=== PATIENT | male | born 1955 | race Caucasian/White ===

== ENCOUNTER → 2018-02-20 | Outpatient (CLI) | payer BC ==
[2018-02-20 12:52] LABS: LDL Cholesterol,Calculated 61.6 mg/dL (0.0-131.0); VLDL Calculation 13.4 mg/dL (5.00-40.00)
== END | disposition home or self-care (01) ==
LOC: LABWHC1 06:48
PROVIDERS: ATTEND Internal Medicine Interventional Cardiology
DX: E78.2 Mixed hyperlipidemia (principal)
CPT/HCPCS: 36415; 80061; 82550; 84450; 84460

== ENCOUNTER 2018-03-10 09:47 | Observation (INO) | payer BC ==
[2018-03-10 10:48] LABS: Basophils # (A) 0.1 k/uL (0-0.2); Basophils % (A) 1 %; Eosinophils # (A) 0.4 k/uL (0-0.7); Eosinophils % (A) 4 %; HCT 45.8 % (39.0-53.0); HGB 15.4 gm/dL (13.0-17.5); Lymphocytes # (A) 1.1 k/uL (1.0-4.8); Lymphocytes % (A) 10 %; MCH 30.4 pg (25.0-35.0); MCHC 33.5 g/dL (31.0-37.0); MCV 90.7 fL (80.0-100.0); Mean Platelet Volume 7.8; Monocytes # (A) 0.6 k/uL (0-1.0); Monocytes % (A) 5 %; Neutrophils % (A) 79 %; Platelet Count 214 k/uL (150-450); RBC 5.06 m/uL (4.30-5.90); RDW 12.6 % (11.5-15.5); WBC 11.3 k/uL (3.8-10.6)
--- NOTE | 2018-03-10 10:51 | XR ---
EXAMINATION TYPE: XR chest 2V DATE OF EXAM: 03/10/2018 COMPARISON: 03/13/2016 HISTORY: Chest pain TECHNIQUE: Frontal and lateral views of the chest are obtained. FINDINGS: There is no focal air space opacity, pleural effusion, or pneumothorax seen. The cardiac silhouette size is within normal limits. The osseous structures are intact. Minimal multilevel dege nerative changes of the thoracic spine are noted. IMPRESSION: No acute cardiopulmonary process.
[2018-03-10 10:58] LABS: ALT 34 U/L (21-72); AST 27 U/L (17-59); Albumin 4.7 g/dL (3.5-5.0); Alkaline Phosphatase 90 U/L (38-126); Anion Gap 12 mmol/L; Blood Urea Nitrogen 22 mg/dL (9-20); Calcium 10.2 mg/dL (8.4-10.2); Carbon Dioxide 24 mmol/L (22-30); Chloride 102 mmol/L (98-107); Glucose 95 mg/dL (74-99); Lipase 489 U/L (23-300); Potassium 5.2 mmol/L (3.5-5.1); Sodium 138 mmol/L (137-145); Total Bilirubin 1.8 mg/dL (0.2-1.3); Total Protein 7.8 g/dL (6.3-8.2)
--- NOTE | 2018-03-10 11:07 | ED ---
Chest Pain HPI - General Chief Complaint: Chest Pain Stated Complaint: CHest Pain Time Seen by Provider: 03/10/18 10:13 Source: patient, EMS, RN notes reviewed, old records reviewed Mode of arrival: EMS Limitations: no limitations - History of Present Illness Initial Comments: This is a 8-year-old male who presented ER today for evaluation regarding elevated blood pressure, symptoms of near syncope and chest pain. Patient's history of heart disease 2 stents, most recently 7 years ago. Patient has had similar episode prior to 4 years ago he was seen in emergency room and discharged home with no acute cause found. Patient was at work having a normal day and began to feel very lightheaded dizzy diaphoretic with chest pain. He was at work where they have ability to check blood pressure, his blood pressure severely elevated at the time he took a nitro with no improvement and then called EMS. EMS gave her nitro and patient states at that point his symptoms did improve his blood pressure improved. Patient denies current pain MD Complaint: chest pain -: hour(s) (1) Onset: during rest Pain Location: substernal, left chest Pain Radiation: none Severity: mild Severity scale (1-10): 3 Quality: aching Improves With: rest Worsens With: nothing Anginal Symptoms: diaphoresis, dyspnea Other Symptoms: syncope (Near syncope) Treatments Prior to Arrival: nitroglycerin - Related Data Home Medications Medication Instructions Recorded Confirmed Aspirin EC [Ecotrin Low Dose] 81 mg PO DAILY 11/05/14 03/10/18 Metoprolol Tartrate [Lopressor] 25 mg PO HS 11/05/14 03/10/18 Clopidogrel Bisulfate [Clopidogrel] 75 mg DAILY 03/15/16 03/10/18 Atorvastatin Calcium [Lipitor] 80 mg PO HS 03/10/18 03/10/18 Allergies Allergy/AdvReac Type Severity Reaction Status Date / Time prasugrel [From Effient] Allergy Unknown Verified 03/10/18 10:09 Review of Systems ROS Statement: Those systems with pertinent positive or pertinent negative responses have been documented in the HPI. ROS Other: All systems not noted in ROS Statement are negative. EKG Findings - EKG Comments: EKG Findings:: EKG shows sinus bradycardia rate of 58, MS 180, QRS 90, QTc 424 Past Medical History Past Medical History: Coronary Artery Disease (CAD), Chest Pain / Angina Additional Past Medical History / Comment(s): Occasional L arm numbness. Pt denies prior [place]. Last Myocardial Infarction Date:: 03/2013 History of Any Multi-Drug Resistant Organisms: None Reported Past Surgical History: Heart Catheterization, Heart Catheterization With Stent Past Anesthesia/Blood Transfusion Reactions: No Reported Reaction Date of Last Stent Placement:: 03/2013 Past Psychological History: No Psychological Hx Reported Smoking Status: Never smoker Past Alcohol Use History: Occasional Past Drug Use History: None Reported - Past Family History Mother Family Medical History: Coronary Artery Disease (CAD), Myocardial Infarction ([place] ) Additional Family Medical History / Comment(s): Mother in her mid 60's from multiple medical problems. Father Family Medical History: Coronary Artery Disease (CAD) Additional Family Medical History / Comment(s): Father is 89 yrs old. General Exam Limitations: no limitations General appearance: alert, in no apparent distress, anxious Head exam: Present: atraumatic, normocephalic, normal inspection Eye exam: Present: normal appearance, PERRL, EOMI. Absent: scleral icterus, conjunctival injection, periorbital swelling ENT exam: Present: normal exam, mucous membranes moist Neck exam: Present: normal inspection. Absent: tenderness, meningismus, lymphadenopathy Respiratory exam: Present: normal lung sounds bilaterally. Absent: respiratory distress, wheezes, rales, rhonchi, stridor Cardiovascular Exam: Present: regular rate, normal rhythm, normal heart sounds. Absent: systolic murmur, diastolic murmur, rubs, gallop, clicks GI/Abdominal exam: Present: soft, normal bowel sounds. Absent: distended, tenderness, guarding, rebound, rigid Extremities exam: Present: normal inspection, full ROM, normal capillary refill. Absent: tenderness, pedal edema, joint swelling, calf tenderness Back exam: Present: normal inspection Neurological exam: Present: alert, oriented X3, CN II-XII intact Psychiatric exam: Present: normal affect, normal mood Skin exam: Present: warm, dry, intact, normal color. Absent: rash Course Vital Signs 03/10/18 03/10/18 03/10/18 09:53 11:00 11:10 Temperature 97.6 F Pulse Rate 59 L 58 L 58 L Respiratory 18 18 17 Rate Blood Pressure 151/92 124/86 126/70 O2 Sat by Pulse 100 98 99 Oximetry - Reevaluation(s) Reevaluation #1: 03/10/18 13:45 Medical records reviewed Reevaluation #2: 03/10/18 13:45 Patient remains felt pain throughout his entire emergency department stay Reevaluation #3: 03/10/18 13:[address] Manzanares patient accepred for admission Chest Pain MDM - MDM 8-year-old male the ER for evaluation, patient resents with recurrent chest pain , patient will be admitted for chest pain observation secondary to extensive cardiac history Critical Care Time Critical Care Time: Yes Total Critical Care Time: 31 Disposition Clinical Impression: Chest pain, Unstable angina pectoris Disposition: ADMITTED IP TO THIS HOSP Condition: Fair Instructions: Chest Pain (ED) Is patient prescribed a controlled substance at d/c from ED?: No Referrals: None,Stated [Primary Care Provider] - 1-2 days
[2018-03-10 11:09] LABS: INR 0.9 (<1.2); Partial Thromboplastin Time 22.2 sec (22.0-30.0)
[2018-03-10 11:17] LABS: Creatine Kinase 48 U/L (55-170)
[2018-03-10 11:29] LABS: Creatine Kinase MB 0.4 ng/mL (0.0-2.4); Troponin I <0.012 ng/mL (0.000-0.034)
[2018-03-10] MEDS ORDERED: NITROGLYCERIN SL TABS 0.4 MG TAB SUBLINGUAL PRN (13:46)
[2018-03-10] MEDS ORDERED: HEPARIN SODIUM,PORCINE 5,000 UNIT/ML 1 ML VIAL IV ONE (13:46)
[2018-03-10] MEDS ORDERED: ASPIRIN 81 MG PO STA (13:46)
[2018-03-10] MEDS ORDERED: HEPARIN SODIUM,PORCINE 5,000 UNIT/ML 1 ML VIAL IV PRN (13:46)
[2018-03-10] MEDS ORDERED: HEPARIN SOD,PORK IN 0.45% NACL 25,000 UNIT in 0.45% NACL 1 250ML.BAG IV SCH (14:00)
[2018-03-10 14:52] VITALS: RESP 18
[2018-03-10 16:25] LABS: Creatine Kinase 37 U/L (55-170)
[2018-03-10 16:39] LABS: Creatine Kinase MB 0.3 ng/mL (0.0-2.4); Troponin I <0.012 ng/mL (0.000-0.034)
--- NOTE | 2018-03-10 18:50 | HP ---
HISTORY AND PHYSICAL CHIEF COMPLAINT: Chest pain. HISTORY OF PRESENT ILLNESS: This gentleman was at work when he noticed some slightly lateral left anterior chest pain associated diaphoresis. This subsided. It had lasted for a period of time. He sat down and took a nitroglycerin that helped slightly. He finally decided to let somebody call an ambulance, and he took a second nitroglycerin on the way in and it relieved the pain. He was slightly diaphoretic, but he had no nausea, vomiting, shortness of breath, etc. He has a history of having coronary artery disease in the past without infarction. In 2011 he had his first stent, and another in 2013. It was done in this hospital. He complained about taking his medications. He is not diabetic and his blood pressure has been good. Cholesterol has been under good control. 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 REVIEW OF SYSTEMS: He has had no neurologic problems, change in vision or hearing, murmurs, rheumatic fever, orthopnea, PND, palpitations, syncope, abdominal pain, GERD, nausea, vomiting, hematemesis, melena, hematochezia, jaundice, hematuria, frequency, urgency, dysuria, nocturia, hesitancy, renal failure, etc. Past medical history and personal and social histories are essentially unremarkable and unchanged. He is NOT ALLERGIC TO ANYTHING. He has had no surgery. He is on a statin, aspirin, metoprolol, clopidogrel. He does not smoke. PHYSICAL EXAMINATION: Blood pressure is 128/80 with a pulse of 73, respirations of 19. He is afebrile. In general he appeared to be well developed, well nourished, in no acute distress. Skin color was normal. Skin was warm and dry. Lymph nodes were not enlarged. Head, ears, eyes, nose, mouth and throat were normal. Neck veins were not distended. Carotids were normal. No bruits. Chest was clear to auscultation and percussion. Cardiac exam was normal. No murmurs or extra sounds. The abdomen was soft, nontender, without visceromegaly or masses. Bowel sounds were present. Extremities were normal. Neurologically he was intact. He is admitted to the hospital with diagnoses: 1. Unstable angina pectoris. 2. History of coronary artery disease. PLAN: 1. Bed rest. 2. IV fluids. 3. Serial EKGs and enzymes. 4. Cardiology consult. MMSADAF / IJN: [id number] /
[2018-03-10] MEDS: ATORVASTATIN 80 MG TAB PO SCH ×2 (20:01→20:05)
[2018-03-10] MEDS ORDERED: CLOPIDOGREL 75 MG TAB PO SCH (21:00)
[2018-03-10] MEDS ORDERED: METOPROLOL TARTRATE 25 MG TAB PO SCH ×2 (21:00)
[2018-03-10 21:48] LABS: Creatine Kinase 36 U/L (55-170)
[2018-03-10 22:03] LABS: Creatine Kinase MB 0.3 ng/mL (0.0-2.4); Troponin I <0.012 ng/mL (0.000-0.034)
[2018-03-11 06:17] LABS: Mean Platelet Volume 7.6; Platelet Count 212 k/uL (150-450)
[2018-03-11 07:01] LABS: Cholesterol 130 mg/dL (<200); HDL Cholesterol 61 mg/dL (40-60); LDL Cholesterol,Calculated 58 mg/dL (0-99); Triglycerides 53 mg/dL (<150)
[2018-03-11] MEDS ORDERED: ASPIRIN 81 MG PO SCH (09:00)
[2018-03-11] MEDS ORDERED: CLOPIDOGREL 75 MG TAB PO SCH (09:00)
[2018-03-11] MEDS ORDERED: ASPIRIN 325 MG TAB PO SCH (09:00)
--- NOTE | 2018-03-11 10:04 | US ---
EXAMINATION TYPE: US abdomen complete DATE OF EXAM: 03/11/2018 COMPARISON: NONE CLINICAL HISTORY: elevated lipase. Abnormal labs, chest pressure yesterday EXAM MEASUREMENTS: Liver Length: 16.1 cm Gallbladder Wall: 0.3 cm CHD: 0.5 cm Spleen: 10.5 cm Right Kidney: 9.6 x 4.7 x 4.5 cm Left Kidney: 10.1 x 4.4 x 5.1 cm Pancreas: Limited by bowel gas Liver: wnl Gallbladder: wnl Evidence for sonographic Wilson's sign: neg CBD: Obscured by overlying bowel gas CHD: wnl Spleen: wnl Right Kidney: wnl Left Kidney: wnl Upper IVC: wnl Abd Aorta: Limited by bowel gas IMPRESSION: 1. Pancreas is limited by bowel gas. If there is concern for pancreatic abnormality correlate with CA T scan.
--- NOTE | 2018-03-11 10:48 | P.CRDCN ---
History of Present Illness History of present illness: This is a pleasant 62 or male past medical history significant for coronary artery disease status post angioplasty 2 2011 and 2013. Most recent cardiac catheterization performed February 2016 revealed normal RCA with no obstructive disease, left main with no obstructive disease, circumflex with mild disease in the range of 20-30%, mild in-stent restenosis noted of the ostial LAD 30-40%. He also has high blood pressure and dyslipidemia. He follows with Dr. Nolan in the office. We have been asked to see him in consultation for symptoms of chest discomfort. He states yesterday morning he went to work in his normal state of health while sitting down and having a meeting he started to feel generally fatigued and unwell. He got up and walked 1 block to his building to begin his work and he started to feel a heavy pressure sensation in the left precordial region and he was diaphoretic and clammy in the hands. He denies shortness of breath, dizziness or palpitations. He walked back to his supervisors office sat down to see if his symptoms would subside however they persisted for approximately 15 minutes at which time he took a nitroglycerin which did not resolve his discomfort so he called EMS. When EMS arrived to give him a second nitroglycerin which did resolve his chest discomfort. At the time of my exam he is seen resting comfortably in bed in no acute distress he denies any further symptoms of chest discomfort or diaphoresis since admission. EKG reveals sinus bradycardia heart rate [address] or T wave abnormalities noted. Chest x-ray is negative for an acute cardiopulmonary process. Laboratory data reviewed, WBC 11.3, hemoglobin 15.4, platelets 212, sodium 138, potassium 5.2, creatinine 0.89, magnesium 2.0, cardiac enzymes negative 3, LDL 58, HDL 61 and lipase 489. Current cardiac medications include aspirin 81 mg daily, atorvastatin 80 mg daily, Plavix 75 mg daily Lopressor 25 mg daily. Most recent echo obtained in the office reveals preserved LV systolic function with EF 55% At the time of my exam: CONSTITUTIONAL: Denies fever. Denies chills. EYES: Denies blurred vision. Denies vision changes. Denies eye pain. EARS, NOSE, MOUTH & THROAT: Denies headache. Denies sore throat. Denies ear pain. CARDIOVASCULAR: Denies chest pain. Denies shortness of breath. Denies orthopnea. Denies PND. Denies palpitations. RESPIRATORY: Denies cough. GASTROINTESTINAL: Denies abdominal pain. Denies diarrhea. Denies constipation. Denies nausea. Denies vomiting. MUSCULOSKELETAL: Denies myalgias. INTEGUMENTARY: Denies pruitis. Denies rash. NEUROLOGIC: Denies numbness. Denies tingling. Denies weakness. PSYCHIATRIC: Denies anxiety. Denies depression. ENDOCRINE: Denies fatigue. Denies weight change. Denies polydipsia. Denies polyurina. GENITOURINARY: Denies burning, hematuria or urgency with micturation. HEMATOLOGIC: Denies history of anemia. Denies bleeding. Blood pressure 110/65 heart rate 58 afebrile maintaining oxygen saturation on room air GENERAL: This is a 62-year-old male in no apparent distress at the time of my examination. HEENT: Head is atraumatic, normocephalic. Pupils are equal, round. Sclerae anicteric. Conjunctivae are clear. Mucous membranes of the mouth are moist. Neck is supple. There is no jugular venous distention. No carotid bruit is heard. LUNGS: Clear to auscultation no wheezes, rales or rhonchi. No chest wall tenderness is noted on palpation or with deep breathing. HEART: Regular rate and rhythm without murmurs, rubs or gallops. S1 and S2 heard. ABDOMEN: Soft, nontender. Bowel sounds are heard. No organomegaly noted. EXTREMITIES: No evidence of peripheral edema and no calf tenderness noted. VASCULAR: Radial and dorsalis pedis pulses palpated, no evidence of clubbing. NEUROLOGIC: Patient is awake, alert and oriented x3. ASSESSMENT Precordial chest pain. An acute coronary event has been ruled out. Elevated lipase, ultrasound of abdomen unremarkable with limited views of the pancreas Hypertension Dyslipidmia History of coronary artery disease with mild in-stent restenosis of ostial LAD maintained on dual anti-platelet therapy Regular alcohol intake 2-3 times per week PLAN An acute coronary event has been ruled out with no EKG evidence of ischemia and negative cardiac enzymes. Obtain 2D echocardiogram and doppler study to assess cardiac structure and function. Perform stress echocardiogram to assess for stress induced ischemia. If stress test is normal he is stable from a cardiac perspective. Follow up with Dr. Nolan in 2-3 weeks. Thank you kindly for this consultation. Nurse Practitioner note has been reviewed, I agree with a documented findings and plan of care. Patient was seen and examined. Past Medical History Past Medical History: Coronary Artery Disease (CAD), Chest Pain / Angina, Hypertension Additional Past Medical History / Comment(s): previously charted that pt had mi - Pt stated he was never told he had an mi Last Myocardial Infarction Date:: 03/2013 History of Any Multi-Drug Resistant Organisms: None Reported Past Surgical History: Heart Catheterization, Heart Catheterization With Stent Additional Past Surgical History / Comment(s): several heart caths and pt stated he has 2 stents Past Anesthesia/Blood Transfusion Reactions: No Reported Reaction Additional Past Anesthesia/Blood Transfusion Reaction / Comment(s): "has never had a blood transfusion" Date of Last Stent Placement:: 03/2013 Smoking Status: Never smoker - Past Family History Mother Family Medical History: Coronary Artery Disease (CAD), Myocardial Infarction ([place] ) Additional Family Medical History / Comment(s): Mother in her mid 60's from multiple medical problems. Father Family Medical History: Coronary Artery Disease (CAD) Additional Family Medical History / Comment(s): Father is 89 yrs old. Medications and Allergies Home Medications Medication Instructions Recorded Confirmed Type Aspirin EC [Ecotrin Low Dose] 81 mg PO DAILY 11/05/14 03/10/18 History Metoprolol Tartrate [Lopressor] 25 mg PO HS 11/05/14 03/10/18 History Clopidogrel Bisulfate [Clopidogrel] 75 mg DAILY 03/15/16 03/10/18 History Atorvastatin Calcium [Lipitor] 80 mg PO HS 03/10/18 03/10/18 History Allergies Allergy/AdvReac Type Severity Reaction Status Date / Time prasugrel [From Effient] Allergy Unknown Verified 03/10/18 10:09 Physical Exam Vitals: Vital Signs Temp Pulse Pulse Resp BP BP Pulse Ox 03/11/18 08:00 50 L 18 03/11/18 07:26 97.8 F 50 L 18 110/65 99 03/11/18 03:44 97.6 F 51 L 18 106/66 98 03/11/18 03:40 18 03/11/18 00:00 98.2 F 59 L 18 105/61 98 03/10/18 23:37 18 03/10/18 20:00 98.2 F 60 18 125/75 99 03/10/18 15:13 98 03/10/18 14:40 98.2 F 65 18 131/81 98 03/10/18 13:30 69 16 112/70 98 03/10/18 13:00 65 19 122/67 95 03/10/18 12:30 67 17 120/69 95 03/10/18 12:00 63 18 119/67 96 03/10/18 11:30 61 17 126/70 97 03/10/18 11:10 58 L 17 126/70 99 03/10/18 11:00 58 L 18 124/86 98 Intake and Output 03/10/18 03/11/18 03/11/18 22:59 06:59 14:59 Intake Total 118 82.374 Balance 118 82.374 Intake: Intake, IV Titration 82.374 Amount Heparin Sod,Pork in 0.45% 82.374 NaCl 25,000 unit In 0.45 % NaCl 1 250ml.bag @ 12 UNITS/KG/HR 8.81 mls/hr IV .Q24H [facility] Rx#: [id number] Oral 118 Other: Voiding Method Toilet Toilet Toilet # Voids 1 1 Results 03/11/18 06:06 03/10/18 10:00 Cardiac Enzymes 03/10/18 03/10/18 03/10/18 Range/Units 10:00 10:00 15:44 AST 27 (17-59) U/L CK-MB (CK-2) 0.4 0.3 (0.0-2.4) ng/mL Troponin I <0.012 <0.012 (0.000-0.034) ng/mL 03/10/18 Range/Units 21:10 AST (17-59) U/L CK-MB (CK-2) 0.3 (0.0-2.4) ng/mL Troponin I <0.012 (0.000-0.034) ng/mL Coagulation 03/10/18 03/10/18 03/11/18 Range/Units 10:00 21:10 06:06 PT 10.0 (9.0-12.0) sec APTT 22.2 36.9 H 46.2 H (22.0-30.0) sec Lipids 03/11/18 Range/Units 06:06 Triglycerides 53 (<150) mg/dL Cholesterol 130 (<200) mg/dL HDL Cholesterol 61 H (40-60) mg/dL CBC 03/10/18 03/11/18 Range/Units 10:00 06:06 WBC 11.3 H (3.8-10.6) k/uL RBC 5.06 (4.30-5.90) m/uL Hgb 15.4 (13.0-17.5) gm/dL Hct 45.8 (39.0-53.0) % Plt Count 214 212 (150-450) k/uL Comprehensive Metabolic Panel 03/10/18 Range/Units 10:00 Sodium 138 (137-145) mmol/L Potassium 5.2 H (3.5-5.1) mmol/L Chloride 102 (98-107) mmol/L Carbon Dioxide 24 (22-30) mmol/L BUN 22 H (9-20) mg/dL Creatinine 0.89 (0.66-1.25) mg/dL Glucose 95 (74-99) mg/dL Calcium 10.2 (8.4-10.2) mg/dL AST 27 (17-59) U/L ALT 34 (21-72) U/L Alkaline Phosphatase 90 (38-126) U/L Total Protein 7.8 (6.3-8.2) g/dL Albumin 4.7 (3.5-5.0) g/dL Current Medications Generic Name Dose Route Start Last Admin Trade Name Freq PRN Reason Stop Dose Admin Aspirin 325 mg 03/11/18 09:00 Aspirin PO DAILY [facility] Aspirin 81 mg 03/11/18 09:00 Aspirin PO DAILY [facility] Atorvastatin Calcium 80 mg 03/10/18 21:00 03/10/18 20:05 Lipitor PO Not Given HS [facility] Clopidogrel Bisulfate 75 mg 03/10/18 21:00 03/10/18 22:10 Plavix PO 75 mg HS [facility] Administration Heparin Sodium (Porcine) 0 unit 03/10/18 13:46 Heparin IV Q6HR PRN Low PTT Protocol Nitroglycerin 0.4 mg 03/10/18 13:46 Nitrostat SUBLINGUAL Q5M PRN Chest Pain Intake and Output 03/10/18 03/11/18 03/11/18 22:59 06:59 14:59 Intake Total 118 82.374 Balance 118 82.374 Intake: Intake, IV Titration 82.374 Amount Heparin Sod,Pork in 0.45% 82.374 NaCl 25,000 unit In 0.45 % NaCl 1 250ml.bag @ 12 UNITS/KG/HR 8.81 mls/hr IV .Q24H [facility] Rx#: [id number] Oral 118 Other: Voiding Method Toilet Toilet Toilet # Voids 1 1 03/11/18 06:06 03/10/18 10:00
[2018-03-11 11:48] VITALS: BP 116/76; PULSE 76; TEMP 98
--- NOTE | 2018-03-11 12:44 | ECHOF ---
Referral Reason: MEASUREMENTS -------- HEIGHT: 182.9 cm WEIGHT: 72.6 kg BP: IVSd: 1.0 cm (0.6 - 1.1) LVIDd: 3.9 cm (3.9 - 5.3) LVPWd: 1.2 cm (0.6 - 1.1) IVSs: 1.5 cm LVIDs: 2.1 cm LVPWs: 1.8 cm LAESV Index (A-L): 27.04 ml/m Ao Diam: 2.9 cm (2.0 - 3.7) AV Cusp: 2.0 cm (1.5 - 2.6) LA Diam: 3.8 cm (2.7 - 3.8) MV EXCURSION: 18.525 mm (> 18.000) MV EF SLOPE: 112 mm/s (70 - 150) EPSS: 0.2 cm MV E Kailash: 0.82 m/s MV DecT: 178 ms MV A Kailash: 0.63 m/s MV E/A Ratio: 1.30 RAP: 5.00 mmHg RVSP: 19.65 mmHg FINDINGS -------- Sinus rhythm. This was a technically good study. The left ventricular size is normal. There is mild concentric left ventricular hypertrophy. Overa ll left ventricular systolic function is normal with, an EF between 55 - 60 %. The right ventricle is normal in size. Normal LA size by volume 22+/-6 ml/m2. The right atrium is normal in size. Aortic valve is trileaflet and is mildly thickened. The mitral valve leaflets are mildly thickened. [id number]-[id number] mitral regurgitation is present. Mild tricuspid regurgitation present. The right ventricular systolic pressure, as measured by Doppl er, is 19.65mmHg. Pulmonic valve appears structurally normal. The aortic root size is normal. Normal inferior vena cava with normal inspiratory collapse consistent with estimated right atrial pre ssure of 5 mmHg. The pericardium is normal. CONCLUSIONS -------- 1. Sinus rhythm. 2. This was a technically good study. 3. The left ventricular size is normal. 4. There is mild concentric left ventricular hypertrophy. 5. Overall left ventricular systolic function is normal with, an EF between 55 - 60 %. 6. The right ventricle is normal in size. 7. Normal LA size by volume 22+/-6 ml/m2. 8. The right atrium is normal in size. 9. Aortic valve is trileaflet and is mildly thickened. 10. The mitral valve leaflets are mildly thickened. 11. [id number] mitral regurgitation is present. 12. Mild tricuspid regurgitation present. 13. The right ventricular systolic pressure, as measured by Doppler, is 19.65mmHg. 14. Pulmonic valve appears structurally normal. 15. The aortic root size is normal. 16. Normal inferior vena cava with normal inspiratory collapse consistent with estimated right atrial pressure of 5 mmHg. 17. The pericardium is normal. [employer] OPERATOR: Karina Baugh RDCS
--- NOTE | 2018-03-11 16:27 | DS ---
DISCHARGE SUMMARY CHIEF COMPLAINT: Chest pain. HISTORY OF PRESENT ILLNESS AND PHYSICAL EXAMINATION: Details of this man's history and physical can be found in the initial workup. LABORATORY STUDIES: While he was in the hospital he had laboratory studies, details of which can be found in the laboratory section of his chart. COURSE IN THE HOSPITAL: After admission he was placed on bedrest and started on intravenous fluids. He had serial cardiac enzymes and EKGs and they were normal. He was seen by Cardiology and he had a stress study which was negative. It was felt that he could go home on his usual activity and medication, and he will follow up with Cardiology as well as me in the office in several days. FINAL DIAGNOSES: 1. Angina pectoris. 2. Coronary artery disease. OPERATIONS: None. CONSULTATION: Cardiology. He is improved. MMMAYNORL / CONCHITAN: [id number] /
--- NOTE | 2018-03-13 11:22 | ECHOS ---
STRESS ECHOCARDIOGRAM DATE OF SERVICE: 03/11/2018 INDICATIONS: Chest pain. MEDICATIONS: Clopidogrel, metoprolol, atorvastatin, aspirin. BASELINE HEART RATE: 70 BASELINE BLOOD PRESSURE: 132/72 MAXIMUM HEART RATE: 134 MAXIMUM BLOOD PRESSURE: 190/87 85% MPHR: 136 100% MPHR: 160 METS: 12.3 MAXIMUM STAGE REACHED: IV TOTAL EXERCISE TIME: 12 minutes CLINICAL INFORMATION: The patient was exercised for a total period of 12 minutes. Peak heart rate of 134 was achieved. Maximum blood pressure of 190/87 mmHg was noted. Resting EKG shows normal sinus rhythm with normal OR interval and QRS duration and normal ST-T waves. During exercise, there is J-point depression with upsloping ST segments noted. The baseline echocardiographic images reveals normal left ventricular chamber size with normal left ventricular systolic function. In the immediate postexercise period, normal increase in the wall thickness and contractility is noted. FINAL IMPRESSION: 1. This stress echocardiographic study is negative for stress-induced ischemia. 2. EKG portion of stress test shows equivocal upsloping ST-segment changes. 3. Patient's exercise tolerance is excellent. MMODL / IJN: [id number] /
== END 2018-03-11 15:22 | disposition home or self-care (01) ==
LOC: EC 09:47 → 1SOBS 13:47
PROVIDERS: ADMIT Family Medicine; ATTEND Family Medicine
DX: I25.119 Atherosclerotic heart disease of native coronary artery with unspecified angina pectoris (principal); I10 Essential (primary) hypertension; E78.5 Hyperlipidemia, unspecified; T82.858A Stenosis of other vascular prosthetic devices, implants and grafts, initial encounter; R74.8 Abnormal levels of other serum enzymes; Z79.02 Long term (current) use of antithrombotics/antiplatelets; Z79.82 Long term (current) use of aspirin; Z79.899 Other long term (current) drug therapy; Z88.8 Allergy status to other drugs, medicaments and biological substances; I25.2 Old myocardial infarction; Z95.5 Presence of coronary angioplasty implant and graft; Z82.49 Family history of ischemic heart disease and other diseases of the circulatory system
CPT/HCPCS: 36415; 71046; 76700; 80053; 80061; 82550; 82553; 83690; 83735; 83880; 84484; 85025; 85049; 85610; 85730; 93005; 93306; 93351; 96365; 96366; 96376; 99291

== ENCOUNTER 2018-09-07 09:36 | Emergency (ER) | payer BC ==
[2018-09-07 09:59] VITALS: TEMP 98.3
--- NOTE | 2018-09-07 10:23 | ED ---
General Adult HPI - General Chief complaint: Weakness Stated complaint: arm/leg weakness Time Seen by Provider: 09/07/18 10:02 Source: patient, RN notes reviewed, old records reviewed Mode of arrival: ambulatory Limitations: no limitations - History of Present Illness Initial comments: 62-year-old male history of coronary artery disease, hypercholesterolemia presenting with generalized weakness and fatigue. His symptoms have been present for the past 2 months. One month ago he had his atorvastatin dose reduced this has not improved his symptoms. He complains of weakness and fatigue predominant illness lower legs. He complains of tingling in bilateral upper extremities. No headache. No vision changes. No chest pain or dyspnea. No abdominal pain. No dysuria or hematuria. - Related Data Home Medications Medication Instructions Recorded Confirmed Aspirin EC [Ecotrin Low Dose] 81 mg PO DAILY 11/05/14 09/07/18 Clopidogrel Bisulfate [Clopidogrel] 75 mg PO HS 03/15/16 09/07/18 Atorvastatin Calcium [Lipitor] 80 mg PO HS 03/10/18 09/07/18 Allergies Allergy/AdvReac Type Severity Reaction Status Date / Time prasugrel [From Effient] AdvReac "DID NOT Verified 09/07/18 10:14 FEEL WELL" Review of Systems ROS Statement: Those systems with pertinent positive or pertinent negative responses have been documented in the HPI. ROS Other: All systems not noted in ROS Statement are negative. Past Medical History Past Medical History: Coronary Artery Disease (CAD), Chest Pain / Angina, Hypertension Additional Past Medical History / Comment(s): previously charted that pt had mi- Pt stated he was never told he had an mi Last Myocardial Infarction Date:: 03/2013 History of Any Multi-Drug Resistant Organisms: None Reported Past Surgical History: Heart Catheterization, Heart Catheterization With Stent Additional Past Surgical History / Comment(s): several heart caths and pt stated he has 2 stents Past Anesthesia/Blood Transfusion Reactions: No Reported Reaction Additional Past Anesthesia/Blood Transfusion Reaction / Comment(s): "has never had a blood transfusion" Date of Last Stent Placement:: 03/2013 Past Psychological History: No Psychological Hx Reported Smoking Status: Never smoker Past Alcohol Use History: Occasional Past Drug Use History: None Reported - Past Family History Mother Family Medical History: Coronary Artery Disease (CAD), Myocardial Infarction ([place]) Additional Family Medical History / Comment(s): Mother in her mid 60's from multiple medical problems. Father Family Medical History: Coronary Artery Disease (CAD) Additional Family Medical History / Comment(s): Father is 89 yrs old. General Exam Limitations: no limitations General appearance: alert, in no apparent distress Head exam: Present: atraumatic, normocephalic Eye exam: Present: normal appearance, PERRL, EOMI ENT exam: Present: normal exam Neck exam: Present: normal inspection. Absent: tenderness, meningismus Respiratory exam: Present: normal lung sounds bilaterally. Absent: respiratory distress, wheezes, rales Cardiovascular Exam: Present: regular rate, normal rhythm GI/Abdominal exam: Present: soft. Absent: distended, tenderness, guarding Extremities exam: Present: normal inspection, normal capillary refill. Absent: pedal edema Back exam: Present: normal inspection Neurological exam: Present: alert, oriented X3, CN II-XII intact. Absent: motor sensory deficit Psychiatric exam: Present: normal affect, normal mood Skin exam: Present: warm, dry, intact. Absent: cyanosis, diaphoretic Course Vital Signs 09/07/18 09/07/18 09/07/18 09:52 10:00 10:30 Temperature 98.3 F Pulse Rate 60 Respiratory 16 Rate Blood Pressure 162/94 162/94 137/99 O2 Sat by Pulse 99 98 Oximetry 09/07/18 09/07/18 09/07/18 10:59 11:00 11:30 Temperature Pulse Rate 60 Respiratory 17 Rate Blood Pressure 137/99 146/77 O2 Sat by Pulse 99 Oximetry 09/07/18 12:00 Temperature Pulse Rate 52 L Respiratory 18 Rate Blood Pressure 131/79 O2 Sat by Pulse 98 Oximetry EKG Findings - EKG Comments: EKG Findings:: EKG: Sinus bradycardia, rate of 51, TX interval 140, QRS duration 106, QTC 396, rightward axis, no ST segment elevation Medical Decision Making - Medical Decision Making 62-year-old male presenting with 2 months of generalized weakness and paresthesia. He has no localizing features. He has a normal gait. He has 5 out of 5 strength in all extremities. He has no ataxia. Vital signs are stable. Head CT is obtained, negative for intracranial hemorrhage or mass effect. Chest x-ray negative for acute cardiopulmonary disease. Patient has normal CBC, normal CMP, normal electrolytes, normal TSH Chris CK was obtained which is 43 which is normal. Urinalysis negative for infection. Workup in the emergency Department is negative. Patient is informed of these results, he is reassured. I did discuss close outpatient follow-up including follow up with neurology given his symptoms. Patient is agreeable and will return with any changing symptoms. - Lab Data Result diagrams: 09/07/18 10:30 09/07/18 10:30 Lab Results 09/07/18 09/07/18 09/07/18 Range/Units 10:30 10:30 10:30 WBC 5.6 (3.8-10.6) k/uL RBC 5.14 (4.30-5.90) m/uL Hgb 15.1 (13.0-17.5) gm/dL Hct 45.5 (39.0-53.0) % MCV 88.6 (80.0-100.0) fL MCH 29.3 (25.0-35.0) pg MCHC 33.0 (31.0-37.0) g/dL RDW 13.0 (11.5-15.5) % Plt Count 253 (150-450) k/uL Neutrophils % 71 % Lymphocytes % 16 % Monocytes % 6 % Eosinophils % 3 % Basophils % 1 % Neutrophils # 3.9 (1.3-7.7) k/uL Lymphocytes # 0.9 L (1.0-4.8) k/uL Monocytes # 0.4 (0-1.0) k/uL Eosinophils # 0.2 (0-0.7) k/uL Basophils # 0.1 (0-0.2) k/uL PT (9.0-12.0) sec INR (<1.2) APTT (22.0-30.0) sec Sodium 140 (137-145) mmol/L Potassium 4.8 (3.5-5.1) mmol/L Chloride 104 (98-107) mmol/L Carbon Dioxide 29 (22-30) mmol/L Anion Gap 7 mmol/L BUN 15 (9-20) mg/dL Creatinine 0.81 (0.66-1.25) mg/dL Est GFR (CKD-EPI)AfAm >90 (>60 ml/min/1.73 sqM) Est GFR (CKD-EPI)NonAf >90 (>60 ml/min/1.73 sqM) Glucose 105 H (74-99) mg/dL Plasma Lactic Acid Agustín 1.5 (0.7-2.0) mmol/L Calcium 9.8 (8.4-10.2) mg/dL Magnesium 2.2 (1.6-2.3) mg/dL Total Bilirubin 1.5 H (0.2-1.3) mg/dL AST 21 (17-59) U/L ALT 24 (21-72) U/L Alkaline Phosphatase 80 (38-126) U/L Creatine Kinase 43 L (55-170) U/L Troponin I (0.000-0.034) ng/mL Total Protein 7.5 (6.3-8.2) g/dL Albumin 4.7 (3.5-5.0) g/dL TSH 1.470 (0.465-4.680) mIU/L Urine Color Urine Appearance (Clear) Urine pH (5.0-8.0) Ur Specific [place] (1.001-1.035) Urine Protein (Negative) Urine Glucose (UA) (Negative) Urine Ketones (Negative) Urine Blood (Negative) Urine Nitrite (Negative) Urine Bilirubin (Negative) Urine Urobilinogen (<2.0) mg/dL Ur Leukocyte Esterase (Negative) Urine RBC (0-5) /hpf 09/07/18 09/07/18 09/07/18 Range/Units 10:30 10:30 10:30 WBC (3.8-10.6) k/uL RBC (4.30-5.90) m/uL Hgb (13.0-17.5) gm/dL Hct (39.0-53.0) % MCV (80.0-100.0) fL MCH (25.0-35.0) pg MCHC (31.0-37.0) g/dL RDW (11.5-15.5) % Plt Count (150-450) k/uL Neutrophils % % Lymphocytes % % Monocytes % % Eosinophils % % Basophils % % Neutrophils # (1.3-7.7) k/uL Lymphocytes # (1.0-4.8) k/uL Monocytes # (0-1.0) k/uL Eosinophils # (0-0.7) k/uL Basophils # (0-0.2) k/uL PT 10.2 (9.0-12.0) sec INR 0.9 (<1.2) APTT 24.0 (22.0-30.0) sec Sodium (137-145) mmol/L Potassium (3.5-5.1) mmol/L Chloride (98-107) mmol/L Carbon Dioxide (22-30) mmol/L Anion Gap mmol/L BUN (9-20) mg/dL Creatinine (0.66-1.25) mg/dL Est GFR (CKD-EPI)AfAm (>60 ml/min/1.73 sqM) Est GFR (CKD-EPI)NonAf (>60 ml/min/1.73 sqM) Glucose (74-99) mg/dL Plasma Lactic Acid Agustín (0.7-2.0) mmol/L Calcium (8.4-10.2) mg/dL Magnesium (1.6-2.3) mg/dL Total Bilirubin (0.2-1.3) mg/dL AST (17-59) U/L ALT (21-72) U/L Alkaline Phosphatase (38-126) U/L Creatine Kinase (55-170) U/L Troponin I <0.012 (0.000-0.034) ng/mL Total Protein (6.3-8.2) g/dL Albumin (3.5-5.0) g/dL TSH (0.465-4.680) mIU/L Urine Color Colorless Urine Appearance Clear (Clear) Urine pH 6.5 (5.0-8.0) Ur Specific [place] 1.004 (1.001-1.035) Urine Protein Negative (Negative) Urine Glucose (UA) Negative (Negative) Urine Ketones Negative (Negative) Urine Blood Small H (Negative) Urine Nitrite Negative (Negative) Urine Bilirubin Negative (Negative) Urine Urobilinogen <2.0 (<2.0) mg/dL Ur Leukocyte Esterase Negative (Negative) Urine RBC 2 (0-5) /hpf Disposition Clinical Impression: Generalized weakness, Paresthesia Disposition: HOME SELF-CARE Condition: Good Is patient prescribed a controlled substance at d/c from ED?: No Referrals: Artie Manzanares MD [Primary Care Provider] - 1-2 days Valentín Farnsworth MD [STAFF PHYSICIAN] - 1-2 days Time of Disposition: 12:21
[2018-09-07 10:43] LABS: Basophils # (A) 0.1 k/uL (0-0.2); Basophils % (A) 1 %; Eosinophils # (A) 0.2 k/uL (0-0.7); Eosinophils % (A) 3 %; HCT 45.5 % (39.0-53.0); HGB 15.1 gm/dL (13.0-17.5); Lymphocytes # (A) 0.9 k/uL (1.0-4.8); Lymphocytes % (A) 16 %; MCH 29.3 pg (25.0-35.0); MCV 88.6 fL (80.0-100.0); Mean Platelet Volume 7.3; Monocytes # (A) 0.4 k/uL (0-1.0); Monocytes % (A) 6 %; Neutrophils # (A) 3.9 k/uL (1.3-7.7); Neutrophils % (A) 71 %; Platelet Count 253 k/uL (150-450); RBC 5.14 m/uL (4.30-5.90); WBC 5.6 k/uL (3.8-10.6)
[2018-09-07 10:52] LABS: ALT 24 U/L (21-72); AST 21 U/L (17-59); African American GFR (CKD) >90 (>60 ml/min/1.73 sqM); Albumin 4.7 g/dL (3.5-5.0); Alkaline Phosphatase 80 U/L (38-126); Anion Gap 7 mmol/L; Blood Urea Nitrogen 15 mg/dL (9-20); Calcium 9.8 mg/dL (8.4-10.2); Carbon Dioxide 29 mmol/L (22-30); Chloride 104 mmol/L (98-107); Creatine Kinase 43 U/L (55-170); Glucose 105 mg/dL (74-99); Magnesium 2.2 mg/dL (1.6-2.3); Potassium 4.8 mmol/L (3.5-5.1); Sodium 140 mmol/L (137-145); Total Bilirubin 1.5 mg/dL (0.2-1.3); Total Protein 7.5 g/dL (6.3-8.2)
[2018-09-07 11:05] LABS: Appearance,Urine Clear (Clear); Bilirubin,Urine Negative (Negative); Blood,Urine Small (Negative); Color,Urine Colorless; Glucose,Urine (UA) Negative (Negative); Ketones,Urine Negative (Negative); Leukocyte Esterase,Urine Negative (Negative); Nitrite,Urine Negative (Negative); PH, Urine 6.5 (5.0-8.0); Protein,Urine Negative (Negative); RBC,Urine 2 /hpf (0-5); Specific Gravity,Urine 1.004 (1.001-1.035); Urobilinogen,Urine <2.0 mg/dL (<2.0)
[2018-09-07 11:06] LABS: INR 0.9 (<1.2); Prothrombin Time 10.2 sec (9.0-12.0)
--- NOTE | 2018-09-07 11:15 | XR ---
EXAMINATION TYPE: XR chest 2V DATE OF EXAM: 09/07/2018 COMPARISON: 03/10/2018 HISTORY: 62-year-old male with weakness TECHNIQUE: PA and lateral views FINDINGS: Heart normal size. Aorta and pulmonary vasculature within normal limits. Mild hyperinflation mild int erstitial prominence. No consolidation or pleural effusion. IMPRESSION: Possible underlying COPD. No acute cardiopulmonary process.
--- NOTE | 2018-09-07 12:12 | CT ---
EXAMINATION TYPE: CT brain wo con DATE OF EXAM: 09/07/2018 COMPARISON: None HISTORY: 62-year-old male Bilateral arm and Leg weakness TECHNIQUE: Examination was done in axial plane without intravenous contrast. Coronal and sagittal r econstructions performed. CT DLP: 1113.4 mGycm Automated exposure control for dose reduction was used. FINDINGS: There is no evidence of acute intracranial hemorrhage, acute ischemic changes, mass, mass-effect, or extra-axial fluid collection. There is no effacement of cerebral sulci or basal subarachnoid cister ns. There is no hydrocephalus. There is no midline shift. Rangel-white matter distinction is preserv ed. Trace mucosal thickening inferior maxillary sinuses. Orbits and globes are intact. Mastoid air cells well pneumatized. Leftward nasal septal deviation. IMPRESSION: No acute intracranial abnormality seen.
[2018-09-07 12:13] VITALS: RESP 18
[2018-09-07 12:54] VITALS: BP 135/79; PULSE 57
== END 2018-09-07 12:53 | disposition home or self-care (01) ==
LOC: EC 09:36
DX: R53.1 Weakness (principal); R20.2 Paresthesia of skin; R53.83 Other fatigue; I25.10 Atherosclerotic heart disease of native coronary artery without angina pectoris; E78.00 Pure hypercholesterolemia, unspecified; Z95.818 Presence of other cardiac implants and grafts; Z95.5 Presence of coronary angioplasty implant and graft; Z79.82 Long term (current) use of aspirin; Z79.899 Other long term (current) drug therapy; Z88.8 Allergy status to other drugs, medicaments and biological substances
CPT/HCPCS: 36415; 70450; 71046; 80053; 81001; 82550; 83605; 83735; 84443; 84484; 85025; 85610; 85730; 93005; 99285

== ENCOUNTER → 2019-02-17 | Outpatient (CLI) | payer BC ==
[2019-02-17 16:39] LABS: Chol/HDL Ratio 2.58
== END | disposition home or self-care (01) ==
LOC: LABWHC1 07:14
PROVIDERS: ATTEND Nurse Practitioner Adult Health
DX: E78.5 Hyperlipidemia, unspecified (principal)
CPT/HCPCS: 36415; 80061

== ENCOUNTER 2020-03-06 19:47 | Inpatient (IN) | payer BC ==
[2020-03-06] MEDS ORDERED: HEPARIN SODIUM,PORCINE 5,000 UNIT/ML 1 ML VIAL IV ONE (19:55)
[2020-03-06] MEDS ORDERED: HEPARIN SODIUM,PORCINE 5,000 UNIT/ML 1 ML VIAL IV PRN (19:55)
[2020-03-06] MEDS ORDERED: NITROGLYCERIN OINT 1 INCH/GM PACKET TOPICAL STA (19:55)
[2020-03-06 20:07] LABS: Basophils # (A) 0.1 k/uL (0-0.2); Basophils % (A) 1 %; Eosinophils # (A) 0.3 k/uL (0-0.7); Eosinophils % (A) 3 %; HCT 42.7 % (39.0-53.0); HGB 14.7 gm/dL (13.0-17.5); Lymphocytes # (A) 1.6 k/uL (1.0-4.8); Lymphocytes % (A) 14 %; MCH 31.2 pg (25.0-35.0); MCHC 34.5 g/dL (31.0-37.0); MCV 90.6 fL (80.0-100.0); Mean Platelet Volume 7.7; Monocytes # (A) 0.6 k/uL (0-1.0); Monocytes % (A) 5 %; Neutrophils # (A) 8.3 k/uL (1.3-7.7); Neutrophils % (A) 74 %; Platelet Count 244 k/uL (150-450); RBC 4.71 m/uL (4.30-5.90); RDW 12.1 % (11.5-15.5); WBC 11.2 k/uL (3.8-10.6)
[2020-03-06 20:16] LABS: ALT 23 U/L (4-49); AST 26 U/L (17-59); African American GFR (CKD) >90 (>60 ml/min/1.73 sqM); Albumin 4.4 g/dL (3.5-5.0); Alkaline Phosphatase 80 U/L (38-126); Anion Gap 9 mmol/L; Blood Urea Nitrogen 18 mg/dL (9-20); Calcium 9.5 mg/dL (8.4-10.2); Carbon Dioxide 25 mmol/L (22-30); Chloride 101 mmol/L (98-107); Creatine Kinase 46 U/L (55-170); Glucose 130 mg/dL (74-99); Lipase 757 U/L (23-300); Magnesium 1.9 mg/dL (1.6-2.3); Non-African American GFR(CKD) 80 (>60 ml/min/1.73 sqM); Potassium 4.3 mmol/L (3.5-5.1); Sodium 135 mmol/L (137-145); Total Bilirubin 1.2 mg/dL (0.2-1.3); Total Protein 7.1 g/dL (6.3-8.2)
--- NOTE | 2020-03-06 20:16 | ED ---
Chest Pain HPI - General Chief Complaint: Chest Pain Stated Complaint: chest pain Time Seen by Provider: 03/06/20 19:47 Source: patient, EMS, RN notes reviewed Mode of arrival: EMS - History of Present Illness Initial Comments: Is a 64-year-old male with a history of [place] in the past with 2 stents about 8 years ago who was at home today when he started developing retrosternal chest pain 7/10 severity left-sided he was diaphoretic lightheaded and nauseated pale. He took aspirin and nitro home without much relief he was given nitroglycerin by paramedics which did help bring the pain down quite significantly. Nausea is now gone he is feeling improved no recent cold or flu symptoms no cough or phlegm production no palpitations no other complaints or modifying factors at this time MD Complaint: chest pain - Related Data Home Medications Medication Instructions Recorded Confirmed Aspirin EC [Ecotrin Low Dose] 81 mg PO DAILY 11/05/14 09/07/18 Clopidogrel Bisulfate [Clopidogrel] 75 mg PO HS 03/15/16 09/07/18 Atorvastatin Calcium [Lipitor] 80 mg PO HS 03/10/18 09/07/18 Allergies Allergy/AdvReac Type Severity Reaction Status Date / Time prasugrel [From Effient] AdvReac "DID NOT Verified 09/07/18 10:14 FEEL WELL" Review of Systems ROS Statement: Those systems with pertinent positive or pertinent negative responses have been documented in the HPI. ROS Other: All systems not noted in ROS Statement are negative. EKG Findings - EKG Results: EKG: interpreted by JANUARY, sinus rhythm (Normal sinus rhythm a 62. Interval 1:30 QRS duration 90 QT since QTC 420/[address]-T wave changes seen at this time) Past Medical History Past Medical History: Coronary Artery Disease (CAD), Chest Pain / Angina, Hypertension Additional Past Medical History / Comment(s): previously charted that pt had mi- Pt stated he was never told he had an mi Last Myocardial Infarction Date:: 03/2013 History of Any Multi-Drug Resistant Organisms: None Reported Past Surgical History: Heart Catheterization, Heart Catheterization With Stent Additional Past Surgical History / Comment(s): several heart caths and pt stated he has 2 stents Past Anesthesia/Blood Transfusion Reactions: No Reported Reaction Additional Past Anesthesia/Blood Transfusion Reaction / Comment(s): "has never had a blood transfusion" Date of Last Stent Placement:: 03/2013 Past Psychological History: No Psychological Hx Reported Smoking Status: Never smoker Past Alcohol Use History: Occasional Past Drug Use History: None Reported - Past Family History Mother Family Medical History: Coronary Artery Disease (CAD), Myocardial Infarction ([place]) Additional Family Medical History / Comment(s): Mother in her mid 60's from multiple medical problems. Father Family Medical History: Coronary Artery Disease (CAD) Additional Family Medical History / Comment(s): Father is 89 yrs old. General Exam - General Exam Comments Initial Comments: This is a well-developed well-nourished awake alert oriented times 3 male General appearance: alert, anxious Head exam: Present: atraumatic, normocephalic, normal inspection Eye exam: Present: normal appearance, PERRL, EOMI. Absent: scleral icterus, conjunctival injection, periorbital swelling ENT exam: Present: normal exam, mucous membranes moist Neck exam: Present: normal inspection, full ROM, other (No stridor JVD or bruits). Absent: tenderness, meningismus, lymphadenopathy Respiratory exam: Present: normal lung sounds bilaterally. Absent: respiratory distress, wheezes, rales, rhonchi, stridor Cardiovascular Exam: Present: regular rate, normal rhythm, normal heart sounds. Absent: systolic murmur, diastolic murmur, rubs, gallop, clicks GI/Abdominal exam: Present: soft, normal bowel sounds. Absent: distended, tenderness, guarding, rebound, rigid Extremities exam: Present: normal inspection, full ROM, normal capillary refill. Absent: tenderness, pedal edema, joint swelling, calf tenderness Back exam: Present: normal inspection Neurological exam: Present: alert, oriented X3, CN II-XII intact Psychiatric exam: Present: normal affect, normal mood Skin exam: Present: warm, dry, intact, normal color. Absent: rash Course Vital Signs 03/06/20 03/06/20 19:53 20:00 Temperature 97.6 F Pulse Rate 62 64 Respiratory 18 18 Rate Blood Pressure 151/76 141/73 O2 Sat by Pulse 100 100 Oximetry - Reevaluation(s) Reevaluation #1: 03/06/20 21:05 The patient reveals his pain is improved. Chest Pain MDM - MDM Imaging reviewed no acute findings. Patient does admit to drinking some alcohol earlier this week he does have elevated lipase. Pain is improved I did discuss findings with him and his family as well as with Dr. Manzanares. Patient be admitted for evaluation of chest pain Disposition Clinical Impression: Chest pain, Unstable angina pectoris Disposition: ADMITTED IP TO THIS HOSP Condition: Fair Referrals: Artie Manzanares MD [Primary Care Provider] - 1-2 days
--- NOTE | 2020-03-06 20:27 | XR ---
EXAMINATION TYPE: XR chest 2V DATE OF EXAM: 03/06/2020 COMPARISON: 09/07/2018 INDICATION: Chest pain TECHNIQUE: Frontal and lateral views of the chest are obtained. FINDINGS: The heart size is normal. The pulmonary vasculature is normal. Mild midlung infiltrates are present. These are nonspecific. Subsegmental atelectasis could be consid ered. Atypical pneumonia could be considered. IMPRESSION: 1. Minimal subtle perihilar infiltrates correlate for atelectasis or atypical pneumonia.
[2020-03-06 20:31] LABS: Prothrombin Time 10.1 sec (9.0-12.0)
[2020-03-06 20:32] LABS: Partial Thromboplastin Time 21.3 sec (22.0-30.0)
[2020-03-06] MEDS: HEPARIN SOD,PORK IN 0.45% NACL 25,000 UNIT in 0.45% NACL 1 250ML.BAG IV SCH (20:35)
[2020-03-06 20:36] LABS: D-Dimer 0.62 mg/L FEU (<0.60)
[2020-03-06] MEDS ORDERED: NITROGLYCERIN SL TABS 0.4 MG TAB SUBLINGUAL PRN (21:08)
[2020-03-06] MEDS: SODIUM CHLORIDE 0.9% 1,000 ML IV SCH (21:35)
[2020-03-07 02:33] LABS: Basophils # (A) 0.1 k/uL (0-0.2); Basophils % (A) 1 %; Eosinophils # (A) 0.2 k/uL (0-0.7); Eosinophils % (A) 3 %; HCT 38.8 % (39.0-53.0); HGB 13.2 gm/dL (13.0-17.5); Lymphocytes # (A) 1.3 k/uL (1.0-4.8); Lymphocytes % (A) 15 %; MCH 31.1 pg (25.0-35.0); MCV 91.4 fL (80.0-100.0); Mean Platelet Volume 7.6; Monocytes # (A) 0.4 k/uL (0-1.0); Monocytes % (A) 5 %; Neutrophils # (A) 6.4 k/uL (1.3-7.7); Neutrophils % (A) 75 %; Platelet Count 237 k/uL (150-450); RBC 4.24 m/uL (4.30-5.90); RDW 12.2 % (11.5-15.5); WBC 8.6 k/uL (3.8-10.6)
[2020-03-07 02:49] LABS: Cholesterol 134 mg/dL (<200); HDL Cholesterol 55 mg/dL (40-60); LDL Cholesterol,Calculated 67 mg/dL (0-99); Triglycerides 60 mg/dL (<150)
[2020-03-07] MEDS ORDERED: ASPIRIN 325 MG TAB PO SCH (09:00)
[2020-03-07] MEDS ORDERED: SODIUM CHLORIDE 0.9% 1,000 ML in EMPTY BAG 1 BAG IV ONE (12:36)
[2020-03-07] MEDS: METOPROLOL TARTRATE 12.5 MG TAB PO SCH ×2 (12:41→20:24)
[2020-03-07] MEDS: SODIUM CHLORIDE 0.9% 1,000 ML IV SCH (12:41)
[2020-03-07] MEDS ORDERED: LIDOCAINE 1% INJ 10MG/ML (20 ML MDV) ONE (12:53)
[2020-03-07] MEDS ORDERED: VERAPAMIL 2.5 MG/ML 2 ML AMP ONE (12:53)
[2020-03-07] MEDS ORDERED: IV FLUID CONTINUATION 950 ML IV ONE (13:05)
[2020-03-07] MEDS ORDERED: MIDAZOLAM 2 MG/2 ML VIAL IV ONE (13:06)
[2020-03-07] MEDS ORDERED: VERAPAMIL SYRINGE (5 MG/10 ML) INTRAARTER ONE (13:10)
[2020-03-07] MEDS ORDERED: HEPARIN SODIUM 1,000 UN/ML (10ML VL) IV ONE (13:10)
[2020-03-07] MEDS ORDERED: LIDOCAINE 1% INJ 10MG/ML (20 ML MDV) SQ ONE (13:10)
[2020-03-07] MEDS ORDERED: HEPARIN SODIUM 1,000 UN/ML (10ML VL) ONE (13:14)
[2020-03-07] MEDS ORDERED: RX INFO: IV CONTRAST WAS GIVEN 1 EACH MISC MISCELLANE PRN (13:35)
[2020-03-07] MEDS ORDERED: ATROPINE SULFATE 0.1 MG/ML 10ML SYRINGE IV PRN (13:35)
[2020-03-07] MEDS ORDERED: MAG HYDROX/AL HYDROX/SIMETH 30 ML CUP PO PRN (13:35)
[2020-03-07] MEDS ORDERED: ZOLPIDEM 5 MG TAB PO PRN (13:35)
--- NOTE | 2020-03-07 14:33 | P.CRDCN ---
History of Present Illness Consult date: 03/07/20 History of present illness: CHIEF COMPLAINT: Chest pain HISTORY OF PRESENT ILLNESS: This is a 64-year old male with a past medical history significant for coronary artery disease with previous PCI, hypertension, and hyperlipidemia. Patient follows in the office with Dr. Nolan. We have been asked to see the patient in consultation for chest pain. Patient reports he began having chest pain yesterday at about 7:30. He states the pain lasted approximately 7:30. He states the pain was on the left side of his chest. The pain did not radiate. He reports feeling lightheaded. He denies nausea or vomiting. He states he took 2 nitro himself. He called EMS who gave him an additional nitro. At the time of examination, the patient denies any chest pain or pressure. He denies shortness of breath. Most recent cardiac cath was performed in 2015 revealing normal right coronary artery, mild nonobstructive disease involving the left mid circumflex, patent stent in the ostial and proximal LAD and normal left ventricular systolic function. DIAGNOSTICS: EKG reveals sinus mechanism with no signs of acute ischemia Chest xray minimal subtle perihilar infiltrates correlate for atelectasis or atypical pneumonia Laboratory data: WBC 8.6. Hemoglobin 13.2. Platelet count 237. D-dimer 0.62. Sodium 135. Potassium 4.3. BUN 18. Creatinine 1.0. Magnesium 1.9. Troponin 0.012. 0.032. 0.054. 0.089. Current home cardiac medications include Plavix 75 mg daily and Lipitor 80 mg daily REVIEW OF SYSTEMS: At the time of my exam: CONSTITUTIONAL: Denies fever or chills. HEENT: Denies blurred vision, vision changes, or eye pain. Denies hemoptysis CARDIOVASCULAR: Denies chest pain, orthopnea, PND or palpitations RESPIRATORY: No shortness of breath. GASTROINTESTINAL: Denies abdominal pain. Denies nausea or vomiting. HEMATOLOGIC: Denies bleeding disorders. GENITOURINARY: Denies any blood in urine. SKIN: Denies pruitis. Denies rash. PHYSICAL EXAM: VITAL SIGNS: Reviewed. GENERAL: Well-developed in no acute distress. HEENT: Head is normocephalic. Pupils are equal, round. Sclerae anicteric. Mucous membranes of the mouth are moist. Neck supple. No JVD or thyromegaly LUNGS: Respirations even and unlabored. Lungs essentially clear to auscultation bilaterally. HEART: Regular rate and rhythm. S1 and S2 heard. ABDOMEN: Soft. Nondistended. Nontender. EXTREMITIES: Normal range of motion. No clubbing or cyanosis. Peripheral pulses intact. No lower extremity edema NEUROLOGIC: Awake and alert. Oriented x 3. ASSESSMENT: Non-ST elevated myocardial infection Coronary artery disease with previous PCI to ostial and proximal LAD Hypertension Hyperlipidemia PLAN: Continue IV heparin Resume home cardiac medications Obtain 2D echo to assess cardiac structure and function Begin metoprolol 12.5 mg twice a day Patient to undergo cardiac catheterization today with Dr. Nolan Further recommendations pending patient's course Nurse practitioner note has been reviewed by physician. Signing provider agrees with the documented findings, assessment, and plan of care. Past Medical History Past Medical History: Coronary Artery Disease (CAD), Chest Pain / Angina, Hypertension Additional Past Medical History / Comment(s): previously charted that pt had mi- Pt stated he was never told he had an mi Last Myocardial Infarction Date:: 03/2013 History of Any Multi-Drug Resistant Organisms: None Reported Past Surgical History: Heart Catheterization, Heart Catheterization With Stent Additional Past Surgical History / Comment(s): several heart caths and pt stated he has 2 stents Past Anesthesia/Blood Transfusion Reactions: No Reported Reaction Additional Past Anesthesia/Blood Transfusion Reaction / Comment(s): "has never had a blood transfusion" Date of Last Stent Placement:: 03/2013 Past Psychological History: No Psychological Hx Reported Additional Psychological History / Comment(s): Pt resides with his spouse. 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 Father Family Medical History: Coronary Artery Disease (CAD) Additional Family Medical History / Comment(s): Father is 89 yrs old. Medications and Allergies Home Medications Medication Instructions Recorded Confirmed Type Clopidogrel Bisulfate [Clopidogrel] 75 mg PO HS 03/15/16 03/06/20 History Atorvastatin Calcium [Lipitor] 80 mg PO HS 03/10/18 03/06/20 History Cholecalciferol [Vitamin D3 (25 1,000 unit PO DAILY 03/06/20 03/06/20 History Mcg = 1000 Iu)] Multivitamins, Thera [Multivitamin 1 tab PO DAILY 03/06/20 03/06/20 History (formulary)] Vitamin B (Unknown Strength) 1 tab PO DAILY 03/06/20 03/06/20 History Allergies Allergy/AdvReac Type Severity Reaction Status Date / Time prasugrel [From Effient] AdvReac "DID NOT Verified 03/06/20 22:38 FEEL WELL" Physical Exam Vitals: Vital Signs Temp Pulse Pulse Resp BP BP Pulse Ox 03/07/20 06:37 98.0 F 59 L 16 113/64 96 03/07/20 06:23 97.6 F 61 18 95/64 03/07/20 05:00 60 16 03/07/20 04:00 59 L 16 03/07/20 03:00 98.1 F 16 95/56 03/07/20 02:00 16 03/07/20 01:00 64 18 98/63 03/07/20 00:00 62 03/06/20 23:00 62 108/63 03/06/20 22:00 61 18 104/61 03/06/20 21:00 60 18 106/61 03/06/20 20:00 64 64 18 141/73 100 03/06/20 19:53 97.6 F 62 18 151/76 100 Intake and Output 03/06/20 03/07/20 03/07/20 22:59 06:59 14:59 Intake Total 59.275 190.111 Balance 59.275 190.111 Intake: IV 100 Intake, IV Titration 59.275 90.111 Amount Heparin Sod,Pork in 0.45% 59.275 90.111 NaCl 25,000 unit In 0.45 % NaCl 1 250ml.bag @ 12 UNITS/KG/HR 8.981 mls/hr IV .Q24H [facility] Rx#: [id number] Oral 0 Other: Weight 74.843 kg 74.843 kg 73.2 kg Results 03/07/20 02:23 03/06/20 20:00 Cardiac Enzymes 03/06/20 03/06/20 03/06/20 Range/Units 20:00 20:00 23:33 AST 26 (17-59) U/L Troponin I <0.012 0.032 (0.000-0.034) ng/mL 03/07/20 03/07/20 Range/Units 02:23 08:40 AST (17-59) U/L Troponin I 0.054 H* 0.089 H* (0.000-0.034) ng/mL Coagulation 03/06/20 03/07/20 03/07/20 Range/Units 20:00 02:23 08:40 PT 10.1 (9.0-12.0) sec APTT 21.3 L 40.8 H 49.4 H (22.0-30.0) sec Lipids 03/07/20 Range/Units 02:23 Triglycerides 60 (<150) mg/dL Cholesterol 134 (<200) mg/dL HDL Cholesterol 55 (40-60) mg/dL CBC 03/06/20 03/07/20 Range/Units 20:00 02:23 WBC 11.2 H 8.6 (3.8-10.6) k/uL RBC 4.71 4.24 L (4.30-5.90) m/uL Hgb 14.7 13.2 (13.0-17.5) gm/dL Hct 42.7 38.8 L (39.0-53.0) % Plt Count 244 237 (150-450) k/uL Comprehensive Metabolic Panel 03/06/20 Range/Units 20:00 Sodium 135 L (137-145) mmol/L Potassium 4.3 (3.5-5.1) mmol/L Chloride 101 (98-107) mmol/L Carbon Dioxide 25 (22-30) mmol/L BUN 18 (9-20) mg/dL Creatinine 1.00 (0.66-1.25) mg/dL Glucose 130 H (74-99) mg/dL Calcium 9.5 (8.4-10.2) mg/dL AST 26 (17-59) U/L ALT 23 (4-49) U/L Alkaline Phosphatase 80 (38-126) U/L Total Protein 7.1 (6.3-8.2) g/dL Albumin 4.4 (3.5-5.0) g/dL Current Medications Generic Name Dose Route Start Last Admin Trade Name Freq PRN Reason Stop Dose Admin Al Hydroxide/Mg Hydroxide 30 ml 03/07/20 13:35 Mag Hydrox/Al Hydrox/Simeth 30 Ml Cup PO Q4HR PRN Heartburn Aspirin 81 mg 03/08/20 09:00 Aspirin 81 Mg PO DAILY [facility] Atorvastatin Calcium 80 mg 03/07/20 21:00 Atorvastatin 80 Mg Tab PO HS YOHANA Atropine Sulfate 0.5 mg 03/07/20 13:35 Atropine Sulfate 0.1 Mg/Ml 10ml Syringe IV ONCE PRN Symptomatic Bradycardia Clopidogrel Bisulfate 75 mg 03/07/20 21:00 Clopidogrel 75 Mg Tab PO HS YOHANA Heparin Sodium (Porcine) 0 unit 03/06/20 19:55 03/07/20 03:14 Heparin Sodium,Porcine 5,000 Unit/Ml 1 Ml Vial IV 1,871.07 unit PER PROTOCOL PRN Administration Low PTT Protocol Heparin Sodium/Sodium Chloride 250 mls @ 8.981 mls/hr 03/06/20 20:00 03/07/20 11:47 25,000 unit/ Sodium Chloride IV 14 units/kg/hr .Q24H YOHANA 10.478 mls/hr Titration Protocol 12 UNITS/KG/HR Sodium Chloride 1,000 ml/ IV 1,000 mls @ 73.2 mls/hr 03/07/20 12:36 Solution IV 03/08/20 02:15 .[id number] ONE 1 ML/KG/HR Sodium Chloride 1,000 mls @ 75 mls/hr 03/07/20 13:45 Saline 0.9% IV .[id number] [facility] Metoprolol Tartrate 12.5 mg 03/07/20 12:15 03/07/20 12:41 Metoprolol Tartrate 12.5 Mg Tab PO 12.5 mg BID YOHANA Administration Miscellaneous Information 1 each 03/07/20 13:35 Rx Info: Iv Contrast Was Given 1 Each Misc MISCELLANE 03/09/20 13:37 DAILY PRN Per Protocol Nitroglycerin 0.4 mg 03/06/20 21:08 Nitroglycerin Sl Tabs 0.4 Mg Tab SUBLINGUAL Q5M PRN Chest Pain Zolpidem Tartrate 5 mg 03/07/20 13:35 Zolpidem 5 Mg Tab PO HS PRN Insomnia Intake and Output 03/06/20 03/07/20 03/07/20 22:59 06:59 14:59 Intake Total 59.275 190.111 Balance 59.275 190.111 Intake: IV 100 Intake, IV Titration 59.275 90.111 Amount Heparin Sod,Pork in 0.45% 59.275 90.111 NaCl 25,000 unit In 0.45 % NaCl 1 250ml.bag @ 12 UNITS/KG/HR 8.981 mls/hr IV .Q24H [facility] Rx#: [id number] Oral 0 Other: Weight 74.843 kg 74.843 kg 73.2 kg Patient Weight 03/08/20 06:59 Weight 73.2 kg 03/07/20 02:23 03/06/20 20:00
[2020-03-07 15:00] VITALS: RESP 18
[2020-03-07] MEDS ORDERED: HYDROcodone/APAP 5-325MG 1 EACH TAB PO PRN (15:00)
--- NOTE | 2020-03-07 15:35 | CC ---
CARDIAC CATHETERIZATION REPORT DATE OF SERVICE: March 06, 2020 PERFORMING PHYSICIAN: Arnie Nolan MD. PROCEDURE PERFORMED: 1. Selective right and left coronary angiogram. 2. Left heart catheterization. INDICATION: Acute efp-CM-[id number] myocardial infarction in this 64-year-old gentleman with coronary artery disease and prior stenting of the proximal and mid LAD. COMPLICATION: None. LEVEL OF SEDATION: Moderate with sedation length of 15 minutes. PROCEDURE DESCRIPTION: After obtaining informed consent, the patient was brought to cardiac laboratory courier. The right radial artery was cannulated using micropuncture technique and a micropuncture wire passed easily. Then I placed a 6-Chinese sheath at the right radial artery. I gave the patient 2 mg of verapamil IM and 6000 units of heparin IV. Selective right and left coronary angiogram performed using JR4 and JL3.5 catheters. Left heart catheterization was performed using the JR4 catheter which crossed the aortic valve, then I did pullback across the valve. The procedure was completed without any complication. SELECTIVE CORONARY ANGIOGRAM: 1. RCA is a large caliber vessel and it is a dominant vessel. There are no images here. The RCA is a large caliber vessel it is a dominant vessel. The RCA has mild disease only. Distally bifurcates into PDA and PLV branches and they appeared to be angiographically normal. 2. The left main is angiographically normal, it bifurcates into LCX and LAD. 3. The LCX is a large caliber vessel it is a nondominant vessel. The LCX has intermediate lesion in the midportion, appeared to be in the range of 40% to 50%. This is by the bifurcation of OM1, which bifurcates into two subbranches both appeared to be angiographically normal just before the circumflex continues as a moderate caliber vessel in the AV groove. 4. The LAD: The ostial, proximal, and mid LAD are stented and the stents are patent. The mid to distal and distal LAD appeared to be angiographically normal. The LAD gives rise to multiple small diagonal branches. HEMODYNAMICS: The LVEDP was about 15 mmHg without significant gradient across the aortic valve. CONCLUSION: 1. Patent stents in the ostial/proximal and mid LAD. 2. Intermediate disease involving the mid left circumflex. POSTPROCEDURE MANAGEMENT: 1. Medical treatment. 2. Follow up with the patient. MMODL / IJN: [id number] /
[2020-03-07 15:45] VITALS: BMI 23.1
--- NOTE | 2020-03-07 17:56 | HP ---
HISTORY AND PHYSICAL CHIEF COMPLAINT: Chest pain. HISTORY OF PRESENT ILLNESS: This is another admission for this 64-year-old white male. He experienced chest pain with diaphoresis and presented to the emergency room. He had no shortness of breath. He did have some nausea and he felt weak. In the emergency room his troponin was initially normal and then it elevated. He had no syncope, neurologic problems, etc. REVIEW OF SYSTEMS: He has had no headaches, neurologic problems, difficulty with vision or hearing, cough, hemoptysis, sputum production, shortness of breath, orthopnea, PND, murmurs, rheumatic fever, abdominal pain, hematemesis, melena, hematochezia, jaundice, renal failure, hematuria, frequency, urgency, dysuria, nocturia, diabetes, etc. Past medical history, family history, and personal and social histories reveal that he is on Lipitor and clopidogrel. He is NOT ALLERGIC TO ANY MEDICATION. He does not smoke. PHYSICAL EXAMINATION: Blood pressure is 138/70 with a pulse of 79, respirations of 27, and he is afebrile. In general he appeared to be well developed, well nourished, in no acute distress. Skin color was normal. Skin was warm and dry. Lymph nodes were not enlarged. Head, ears, eyes, nose, mouth and throat were normal. Neck veins were not distended. Thyroid was not enlarged. Chest was clear. Cardiac exam was normal. Abdomen was soft and nontender. Extremities were normal. Neurologically he is intact. IMPRESSION: 1. Chest pain. 2. History of coronary artery disease. 3. Hyperlipidemia. PLAN: 1. Bedrest. 2. IV fluids. 3. Serial EKGs and enzymes. 4. Cardiology consult. MMODL / IJN: [id number] /
--- NOTE | 2020-03-07 18:29 | PN ---
PROGRESS NOTE DATE OF SERVICE: 03/07/2020 CHIEF COMPLAINT: Chest pain. HISTORY OF PRESENT ILLNESS: This gentleman is doing well, and he has had no pains. He has had no fever, chills, cough, diaphoresis, etc. His troponins have elevated. PHYSICAL EXAMINATION: Chest is clear. Cardiac exam is normal. Abdomen is soft, nontender. Extremities are normal. IMPRESSION: Chest pain with elevated troponin. PLAN: Await recommendations from Cardiology. MMODL / IJN: [id number] /
[2020-03-07] MEDS ORDERED: CLOPIDOGREL 75 MG TAB PO SCH (21:00)
[2020-03-07] MEDS ORDERED: ATORVASTATIN 80 MG TAB PO SCH (21:00)
[2020-03-08] MEDS: HEPARIN SOD,PORK IN 0.45% NACL 25,000 UNIT in 0.45% NACL 1 250ML.BAG IV SCH (05:19)
[2020-03-08] MEDS: SODIUM CHLORIDE 0.9% 1,000 ML IV SCH (05:19)
--- NOTE | 2020-03-08 08:00 | ECHOF ---
Referral Reason:chest pain MEASUREMENTS -------- HEIGHT: 177.8 cm WEIGHT: 73.0 kg BP: 130/75 RVIDd: 4.2 cm (< 3.3) IVSd: 1.1 cm (0.6 - 1.1) LVIDd: 3.6 cm (3.9 - 5.3) LVPWd: 1.4 cm (0.6 - 1.1) IVSs: 0.9 cm LVIDs: 2.5 cm LVPWs: 1.6 cm LAESV Index (A-L): 32.95 ml/m Ao Diam: 3.4 cm (2.0 - 3.7) AV Cusp: 1.8 cm (1.5 - 2.6) MV EXCURSION: 25.510 mm (> 18.000) MV EF SLOPE: 71 mm/s (70 - 150) EPSS: 0.4 cm MV E Kailash: 0.92 m/s MV DecT: 189 ms MV A Kailash: 0.56 m/s MV E/A Ratio: 1.63 RAP: 20.00 mmHg RVSP: 48.83 mmHg FINDINGS -------- Sinus rhythm. This was a technically adequate study. The left ventricular size is normal. There is mild concentric left ventricular hypertrophy. Overa ll left ventricular systolic function is normal with, an EF between 55 - 60 %. The diastolic fillin g pattern is normal for the age of the patient 8.70. The right ventricle is normal in size. LA is midly dilated 29-33ml/m2. The right atrial size is normal. Interatrial and interventricular septum intact. The aortic valve is trileaflet and appears structurally normal. There is mild aortic valve sclerosi s. There is no evidence of aortic regurgitation. There is no evidence of aortic stenosis. Mild mitral regurgitation is present. Dfrr-pf-sealqepn tricuspid regurgitation present. There is moderate pulmonary hypertension. The r ight ventricular systolic pressure, as measured by Doppler, is 48.83mmHg. There is no pulmonic regurgitation present. The aortic root size is normal. The inferior vena cava is dilated with poor inspiratory collapse which is consistent with estimated r ight atrial pressure of 20 mmHg. There is no pericardial effusion. CONCLUSIONS -------- 1. The left ventricular size is normal. 2. There is mild concentric left ventricular hypertrophy. 3. Overall left ventricular systolic function is normal with, an EF between 55 - 60 %. 4. LA is midly dilated 29-33ml/m2. 5. The right atrial size is normal. 6. There is mild aortic valve sclerosis. 7. Mild mitral regurgitation is present. 8. Enwj-or-gwttcxop tricuspid regurgitation present. 9. There is moderate pulmonary hypertension. 10. The right ventricular systolic pressure, as measured by Doppler, is 48.83mmHg. 11. The inferior vena cava is dilated with poor inspiratory collapse which is consistent with estimat ed right atrial pressure of 20 mmHg. PHARMACEUTICAL COMPOUNDING SUPERVISOR: Jana Cochran RDCS
[2020-03-08 08:37] LABS: Basophils % (A) 0 %; Eosinophils # (A) 0.3 k/uL (0-0.7); Eosinophils % (A) 4 %; HCT 39.7 % (39.0-53.0); HGB 13.1 gm/dL (13.0-17.5); Lymphocytes # (A) 1.1 k/uL (1.0-4.8); Lymphocytes % (A) 14 %; MCH 30.1 pg (25.0-35.0); MCHC 32.9 g/dL (31.0-37.0); MCV 91.4 fL (80.0-100.0); Monocytes # (A) 0.4 k/uL (0-1.0); Monocytes % (A) 5 %; Neutrophils # (A) 5.9 k/uL (1.3-7.7); Neutrophils % (A) 75 %; Platelet Count 210 k/uL (150-450); RBC 4.35 m/uL (4.30-5.90); RDW 12.8 % (11.5-15.5); WBC 7.9 k/uL (3.8-10.6)
[2020-03-08 08:47] LABS: African American GFR (CKD) >90 (>60 ml/min/1.73 sqM); Anion Gap 4 mmol/L; Blood Urea Nitrogen 15 mg/dL (9-20); Calcium 8.8 mg/dL (8.4-10.2); Carbon Dioxide 28 mmol/L (22-30); Chloride 105 mmol/L (98-107); Glucose 183 mg/dL (74-99); Non-African American GFR(CKD) >90 (>60 ml/min/1.73 sqM); Potassium 4.1 mmol/L (3.5-5.1); Sodium 137 mmol/L (137-145)
[2020-03-08] MEDS ORDERED: ASPIRIN 81 MG PO SCH (09:00)
[2020-03-08] MEDS: METOPROLOL TARTRATE 12.5 MG TAB PO SCH (09:32)
[2020-03-08] MEDS ORDERED: EZETIMIBE 10 MG TAB PO SCH (10:30)
[2020-03-08 10:58] VITALS: BP 132/68; PULSE 61; TEMP 98.3
--- NOTE | 2020-03-08 15:42 | P.PN ---
Subjective Progress Note Date: 03/08/20 CHIEF COMPLAINT: Chest pain HISTORY OF PRESENT ILLNESS: Patient is status post cardiac cath with Dr. Nolan revealing patent stents in the ostial/proximal and mid LAD. Intermediate disease involving the mid left circumflex. Medical management was recommended. Patient examined this morning at the bedside. Patient denies any chest pain or pressure. Denies shortness of breath. Vital signs are stable. PHYSICAL EXAM: VITAL SIGNS: Reviewed. GENERAL: Well-developed in no acute distress. HEENT: Head is normocephalic. Pupils are equal, round. Sclerae anicteric. Mucous membranes of the mouth are moist. Neck supple. No JVD or thyromegaly LUNGS: Respirations even and unlabored. Lungs essentially clear to auscultation bilaterally. HEART: Regular rate and rhythm. S1 and S2 heard. EXTREMITIES: Normal range of motion. No clubbing or cyanosis. Peripheral pulses intact. No lower extremity edema. Cath site clean dry and intact with p ulse present. ASSESSMENT: Non-ST elevated myocardial infection Coronary artery disease with previous PCI to ostial and proximal LAD Hypertension Hyperlipidemia PLAN: Continue current cardiac medications Dr. Villeda recommends LDL less than 50. Add Zetia 10 mg daily Patient is stable for discharge home today from a cardiac standpoint. He is to follow up outpatient with Dr. Nolan Nurse practitioner note has been reviewed by physician. Signing provider agrees with the documented findings, assessment, and plan of care. Objective - Vital Signs Vital signs: Vital Signs Temp 98.3 F 03/08/20 07:40 Pulse 61 03/08/20 07:40 Resp 18 03/08/20 07:40 BP 132/68 03/08/20 07:40 Pulse Ox 96 03/08/20 07:40 Intake & Output 03/07/20 03/08/20 03/08/20 18:59 06:59 18:59 Intake Total 292.169 1960 293 Output Total 0 300 Balance 742.875 8082 293 Weight 73.2 kg 73.3 kg Intake: IV 100 Intake, IV Titration 90.111 1000 Amount Heparin Sod,Pork in 0.45% 90.111 NaCl 25,000 unit In 0.45 % NaCl 1 250ml.bag @ 12 UNITS/KG/HR 8.981 mls/hr IV .Q24H [facility] Rx#: [id number] Sodium Chloride 0.9% 1, 1000 000 ml @ 75 mls/hr IV . [id number] [facility] Rx#:[id number] Oral 360 780 293 Output: Urine 0 300 Stool 0 Other: Voiding Method Toilet # Voids 0 1 # Bowel Movements 0 - Labs CBC & Chem 7: 03/08/20 08:08 03/08/20 08:08 Labs: Abnormal Lab Results - Last 24 Hours (Table) 03/08/20 Range/Units 08:08 Glucose 183 H (74-99) mg/dL
--- NOTE | 2020-03-09 21:57 | DS ---
DISCHARGE SUMMARY DATE OF SERVICE: 03/08/2020 CHIEF COMPLAINT: Chest pain. HISTORY OF PRESENT ILLNESS AND PHYSICAL EXAMINATION: Details of this man's history and physical can be found in the initial workup. LABORATORY STUDIES: While he was in the hospital he had laboratory studies, details of which can be found in the laboratory section of his chart. COURSE IN THE HOSPITAL: After admission he was placed on bedrest and started on intravenous fluids and had serial EKGs and enzymes. Troponins were elevated. He was taken to the laboratory apparatus glass grinder by Cardiology and he had an unremarkable cardiac cath. He was doing well and it was felt he could be discharged on March 08. He will follow up in our office in several days. FINAL DIAGNOSES: 1. Chest pain. 2. History of coronary artery disease. OPERATION: Cardiac cath. CONSULTATION: Cardiology. He is improved. MMODL / IJN: [id number] /
--- NOTE | 2020-03-10 14:50 | CDI ---
Documentation Clarification Form Date: 03/10/2020 02:49:00 PM From: Christina Fraire Phone: Please call Susan Avery at from 8-5pm for questions Admit Date: 03/07/2020 03:24:00 PM Patient Name: Nilton Gonzalez Visit Number: [id number] Discharge Date: 03/08/2020 02:55:00 PM ATTENTION: The Clinical Documentation Specialists (CDI) and [facility] Coding Staff appreciate your assistance in clarifying documentation. Please respond to the clarification below the line at the bottom and electronically sign. The CDI & [facility] Coding staff will review the response and follow-up if needed. Please note: Queries are made part of the Legal Health Record. If you have any questions, please contact the author of this message via ITS. Dr. Artie Manzanares, Conflicting documentation has been found in the medical record: Per cardiology- patient had NSTEMI. Per your DS-Chest pain History/Risk Factors: HTN, HLD, CAD, old [place], hx cardiac stent Clinical Indicators: Troponin I-0.032, 0.054, 0.089 Per consult-EKG reveals sinus mechanism with no signs of acute ischemia. HC-patent stents in the ostial/proximal and mid LAD. Intermediate disease involving the mid left circumflex. Treatment: HC done 03/07, continue cardiac meds, added Zetia, In your opinion, what is the most clinically appropriate diagnosis for this patient? NSTEMI ruled out NSTEMI ruled in Other explanation of clinical findings Unable to determine (no explanation for clinical findings) MTDD
--- NOTE | 2020-03-11 17:10 | MISC ---
MISCELLANOUS REPORT NSTEMI ruled out. MMODL / IJN: [id number] /
== END 2020-03-08 14:55 | disposition home or self-care (01) | DRG 287 ==
LOC: EC 19:47 → 1SOBS 21:08 → 3SCARD 03-07 04:32 → OBSVTOIN 03-07 15:24
PROVIDERS: ADMIT Family Medicine; ATTEND Family Medicine
PROC: 4A023N7 Measurement of Cardiac Sampling and Pressure, Left Heart, Percutaneous Approach (ICD-10-PCS; principal; 2020-03-07 17:15)
PROC: B2111ZZ Fluoroscopy of Multiple Coronary Arteries using Low Osmolar Contrast (ICD-10-PCS; principal; 2020-03-07 17:15)
DX: R07.9 Chest pain, unspecified (principal); I11.9 Hypertensive heart disease without heart failure; I25.10 Atherosclerotic heart disease of native coronary artery without angina pectoris; E78.5 Hyperlipidemia, unspecified; I25.2 Old myocardial infarction; Z79.02 Long term (current) use of antithrombotics/antiplatelets; Z79.899 Other long term (current) drug therapy; Z95.5 Presence of coronary angioplasty implant and graft; Z88.8 Allergy status to other drugs, medicaments and biological substances; Z82.49 Family history of ischemic heart disease and other diseases of the circulatory system
CPT/HCPCS: 36415; 71046; 80048; 80053; 80061; 82550; 83690; 83735; 83880; 84484; 85025; 85379; 85610; 85730; 93005; 93306; 93458; 99285

== ENCOUNTER 2021-01-28 17:00 | Inpatient (IN) | payer BC ==
--- NOTE | 2021-01-28 17:57 | XR ---
EXAMINATION TYPE: XR chest 2V DATE OF EXAM: 01/28/2021 COMPARISON: 03/06/2020 HISTORY: Chest pain TECHNIQUE: 2 views FINDINGS: Heart and mediastinum are normal. Lungs are clear. Diaphragm is normal. Bony thorax is inta ct. There is minor spurring in the thoracic spine. IMPRESSION: No active cardiopulmonary disease. No change.
--- NOTE | 2021-01-28 17:59 | ED ---
General Adult HPI - General Chief complaint: Chest Pain Stated complaint: Chest Pain Time Seen by Provider: 01/28/21 17:58 Source: patient Mode of arrival: wheelchair Limitations: no limitations - History of Present Illness Initial comments: Patient presents to the ED with his for evaluation. Patient states that he developed left-sided chest pressure while washing his motorhome about 1.5 hours ago. Patient states that his pain was initially 6/10 in intensity, but he states that has now improved to 2/10 in intensity. Patient states that he did take one of his nitroglycerin tabs with some relief. Patient also states that he took 2 full dose aspirin tabs. Patient states that he had associated diaphoresis, nausea and vomiting as well. Patient states that he has a history of coronary artery disease, and he states he has [address] Patient denies trauma or injury, fever or chills, headache, focal numbness/weakness/neuro deficit, radiation of his pain, neck/arm/jaw/back pain, pleuritic pain, dyspnea, cough or cold symptoms, palpitations, dizziness, abdominal pain, dysuria or urinary symptoms, leg or calf swelling or pain, or any other symptoms or complaints. - Related Data Home Medications Medication Instructions Recorded Confirmed Clopidogrel Bisulfate [Clopidogrel] 75 mg PO HS 03/15/16 01/28/21 Cholecalciferol [Vitamin D3 (25 1,000 unit PO DAILY 03/06/20 01/28/21 Mcg = 1000 Iu)] Multivitamins, Thera [Multivitamin 1 tab PO DAILY 03/06/20 01/28/21 (formulary)] Atorvastatin [Lipitor] 20 mg PO HS 01/28/21 01/28/21 Nitroglycerin Sl Tabs [Nitrostat] 0.4 mg SUBLINGUAL Q5M PRN 01/28/21 01/28/21 Vitamin B Complex 1 cap PO DAILY 01/28/21 01/28/21 Allergies Allergy/AdvReac Type Severity Reaction Status Date / Time prasugrel [From Effient] AdvReac "DID NOT Verified 01/28/21 18:34 FEEL WELL" Review of Systems ROS Statement: Those systems with pertinent positive or pertinent negative responses have been documented in the HPI. ROS Other: All systems not noted in ROS Statement are negative. Past Medical History Past Medical History: Coronary Artery Disease (CAD), Chest Pain / Angina, Hypertension Additional Past Medical History / Comment(s): previously charted that pt had mi- Pt stated he was never told he had an mi Last Myocardial Infarction Date:: 03/2013 History of Any Multi-Drug Resistant Organisms: None Reported Past Surgical History: Heart Catheterization, Heart Catheterization With Stent Additional Past Surgical History / Comment(s): several heart caths and pt stat ed he has 2 stents Past Anesthesia/Blood Transfusion Reactions: No Reported Reaction Additional Past Anesthesia/Blood Transfusion Reaction / Comment(s): "has never had a blood transfusion" Date of Last Stent Placement:: 03/2013 Past Psychological History: No Psychological Hx Reported Smoking Status: Never smoker Past Alcohol Use History: Occasional Past Drug Use History: None Reported - Past Family History Mother Family Medical History: Coronary Artery Disease (CAD), Myocardial Infarction ([place]) Additional Family Medical History / Comment(s): Mother in her mid 60's from multiple medical problems. Father Family Medical History: Coronary Artery Disease (CAD) Additional Family Medical History / Comment(s): Father is 89 yrs old. General Exam Limitations: no limitations General appearance: alert, in no apparent distress Head exam: Present: atraumatic, normocephalic Eye exam: Present: normal appearance, EOMI ENT exam: Present: mucous membranes moist Neck exam: Present: other (Trachea is in midline) Respiratory exam: Present: normal lung sounds bilaterally. Absent: respiratory distress, wheezes, rales, rhonchi, stridor, chest wall tenderness Cardiovascular Exam: Present: regular rate, normal rhythm, normal heart sounds, other (Normal radial pulses bilaterally) GI/Abdominal exam: Present: soft. Absent: distended, tenderness, guarding Extremities exam: Present: other (Negative Homans sign bilaterally). Absent: tenderness, pedal edema, calf tenderness Neurological exam: Present: alert, oriented X3. Absent: motor sensory deficit Psychiatric exam: Present: normal affect, normal mood Skin exam: Present: warm, dry, intact, normal color Course Vital Signs 01/28/21 17:03 Temperature 96.8 F L Pulse Rate 62 Respiratory 20 Rate Blood Pressure 147/72 O2 Sat by Pulse 100 Oximetry - Reevaluation(s) Reevaluation #1: 01/28/21 19:08 Patient states that his chest pain has now resolved, and he denies development of any new symptoms while in the ED. Patient remains alert and breathing comfortably with a normal room air oxygen saturation. Patient is aware of his test results, and he agrees with hospital admission at this time. 01/28/21 19:11 Case, H&P, test results and ED/home management thus far were discussed with Dr. Manzanares. He accepts hospital admission. He agrees with cardiology consultation. He also agrees with starting the patient on a heparin IV drip. He has no further recommendations at this time. EKG Findings - EKG Comments: EKG Findings:: Sinus bradycardia, ventricular rate of 56 bpm, no ectopy, normal CA and QRS intervals, normal QT interval, normal axis, no ST or T-wave abnormality Medical Decision Making - Medical Decision Making Patient reports resolution of his chest pain while in the ED. Patient's EKG, labs and chest x-ray are fairly unremarkable. Patient initial troponin is negative. Given the patient's suspicious story and history of coronary artery disease, patient was started on a IV heparin drip in the ED. Dr. Manzanares has accepted hospital admission. A cardiology consultation order has been placed. - Lab Data Result diagrams: 01/28/21 17:50 01/28/21 17:50 Lab Results 01/28/21 01/28/21 01/28/21 Range/Units 17:50 17:50 17:50 WBC 8.3 (3.8-10.6) k/uL RBC 4.71 (4.30-5.90) m/uL Hgb 14.8 (13.0-17.5) gm/dL Hct 43.0 (39.0-53.0) % MCV 91.3 (80.0-100.0) fL MCH 31.5 (25.0-35.0) pg MCHC 34.5 (31.0-37.0) g/dL RDW 12.2 (11.5-15.5) % Plt Count 237 (150-450) k/uL MPV 8.3 Neutrophils % 70 % Lymphocytes % 19 % Monocytes % 6 % Eosinophils % 3 % Basophils % 1 % Neutrophils # 5.8 (1.3-7.7) k/uL Lymphocytes # 1.5 (1.0-4.8) k/uL Monocytes # 0.5 (0-1.0) k/uL Eosinophils # 0.3 (0-0.7) k/uL Basophils # 0.0 (0-0.2) k/uL PT 10.3 (9.0-12.0) sec INR 1.0 (<1.2) APTT 21.9 L (22.0-30.0) sec Sodium 137 (137-145) mmol/L Potassium 4.0 (3.5-5.1) mmol/L Chloride 101 (98-107) mmol/L Carbon Dioxide 26 (22-30) mmol/L Anion Gap 10 mmol/L BUN 19 (9-20) mg/dL Creatinine 0.98 (0.66-1.25) mg/dL Est GFR (CKD-EPI)AfAm >90 (>60 ml/min/1.73 sqM) Est GFR (CKD-EPI)NonAf 83 (>60 ml/min/1.73 sqM) Glucose 121 H (74-99) mg/dL Calcium 9.9 (8.4-10.2) mg/dL Magnesium 2.1 (1.6-2.3) mg/dL Total Bilirubin 0.8 (0.2-1.3) mg/dL AST 26 (17-59) U/L ALT 27 (4-49) U/L Alkaline Phosphatase 90 (38-126) U/L Troponin I (0.000-0.034) ng/mL NT-Pro-B Natriuret Pep pg/mL Total Protein 7.2 (6.3-8.2) g/dL Albumin 4.4 (3.5-5.0) g/dL 01/28/21 01/28/21 Range/Units 17:50 17:50 WBC (3.8-10.6) k/uL RBC (4.30-5.90) m/uL Hgb (13.0-17.5) gm/dL Hct (39.0-53.0) % MCV (80.0-100.0) fL MCH (25.0-35.0) pg MCHC (31.0-37.0) g/dL RDW (11.5-15.5) % Plt Count (150-450) k/uL MPV Neutrophils % % Lymphocytes % % Monocytes % % Eosinophils % % Basophils % % Neutrophils # (1.3-7.7) k/uL Lymphocytes # (1.0-4.8) k/uL Monocytes # (0-1.0) k/uL Eosinophils # (0-0.7) k/uL Basophils # (0-0.2) k/uL PT (9.0-12.0) sec INR (<1.2) APTT (22.0-30.0) sec Sodium (137-145) mmol/L Potassium (3.5-5.1) mmol/L Chloride (98-107) mmol/L Carbon Dioxide (22-30) mmol/L Anion Gap mmol/L BUN (9-20) mg/dL Creatinine (0.66-1.25) mg/dL Est GFR (CKD-EPI)AfAm (>60 ml/min/1.73 sqM) Est GFR (CKD-EPI)NonAf (>60 ml/min/1.73 sqM) Glucose (74-99) mg/dL Calcium (8.4-10.2) mg/dL Magnesium (1.6-2.3) mg/dL Total Bilirubin (0.2-1.3) mg/dL AST (17-59) U/L ALT (4-49) U/L Alkaline Phosphatase (38-126) U/L Troponin I <0.012 (0.000-0.034) ng/mL NT-Pro-B Natriuret Pep 111 pg/mL Total Protein (6.3-8.2) g/dL Albumin (3.5-5.0) g/dL - Radiology Data Radiology results: report reviewed (Chest x-ray: No active cardiopulmonary disease. No change.) Disposition Clinical Impression: Chest pain Disposition: ADMITTED IP TO THIS HOSP Condition: Stable Is patient prescribed a controlled substance at d/c from ED?: No Referrals: Artie Manzanares MD [Primary Care Provider] - 1-2 days Time of Disposition: 19:13
[2021-01-28 18:01] LABS: Basophils % (A) 1 %; Eosinophils # (A) 0.3 k/uL (0-0.7); Eosinophils % (A) 3 %; HGB 14.8 gm/dL (13.0-17.5); Lymphocytes # (A) 1.5 k/uL (1.0-4.8); Lymphocytes % (A) 19 %; MCH 31.5 pg (25.0-35.0); MCHC 34.5 g/dL (31.0-37.0); MCV 91.3 fL (80.0-100.0); Mean Platelet Volume 8.3; Monocytes # (A) 0.5 k/uL (0-1.0); Monocytes % (A) 6 %; Neutrophils # (A) 5.8 k/uL (1.3-7.7); Neutrophils % (A) 70 %; Platelet Count 237 k/uL (150-450); RBC 4.71 m/uL (4.30-5.90); RDW 12.2 % (11.5-15.5); WBC 8.3 k/uL (3.8-10.6)
[2021-01-28 18:17] LABS: ALT 27 U/L (4-49); AST 26 U/L (17-59); African American GFR (CKD) >90 (>60 ml/min/1.73 sqM); Albumin 4.4 g/dL (3.5-5.0); Alkaline Phosphatase 90 U/L (38-126); Anion Gap 10 mmol/L; Blood Urea Nitrogen 19 mg/dL (9-20); Calcium 9.9 mg/dL (8.4-10.2); Carbon Dioxide 26 mmol/L (22-30); Chloride 101 mmol/L (98-107); Glucose 121 mg/dL (74-99); Magnesium 2.1 mg/dL (1.6-2.3); Non-African American GFR(CKD) 83 (>60 ml/min/1.73 sqM); Sodium 137 mmol/L (137-145); Total Bilirubin 0.8 mg/dL (0.2-1.3); Total Protein 7.2 g/dL (6.3-8.2)
[2021-01-28 18:26] LABS: Partial Thromboplastin Time 21.9 sec (22.0-30.0); Prothrombin Time 10.3 sec (9.0-12.0)
[2021-01-28] MEDS ORDERED: NITROGLYCERIN OINT 1 INCH/GM PACKET TOPICAL STA (18:29)
[2021-01-28] MEDS ORDERED: HEPARIN SODIUM 1,000 UN/ML (10ML VL) IV PRN (19:11)
[2021-01-28] MEDS ORDERED: HEPARIN SODIUM 1,000 UN/ML (10ML VL) IV ONE (19:11)
[2021-01-28] MEDS: HEPARIN SOD,PORK IN 0.45% NACL 25,000 UNIT in 0.45% NACL 1 250ML.BAG IV SCH (20:03)
[2021-01-28] MEDS ORDERED: ATORVASTATIN 20 MG TAB PO SCH (21:00)
[2021-01-28] MEDS: CLOPIDOGREL 75 MG TAB PO SCH (22:52)
[2021-01-29 02:36] LABS: Basophils % (A) 1 %; Eosinophils # (A) 0.3 k/uL (0-0.7); Eosinophils % (A) 4 %; HCT 41.2 % (39.0-53.0); HGB 13.9 gm/dL (13.0-17.5); Lymphocytes # (A) 1.7 k/uL (1.0-4.8); Lymphocytes % (A) 24 %; MCH 31.3 pg (25.0-35.0); MCHC 33.8 g/dL (31.0-37.0); MCV 92.8 fL (80.0-100.0); Mean Platelet Volume 8.4; Monocytes # (A) 0.5 k/uL (0-1.0); Monocytes % (A) 7 %; Neutrophils # (A) 4.3 k/uL (1.3-7.7); Neutrophils % (A) 62 %; Platelet Count 212 k/uL (150-450); RBC 4.44 m/uL (4.30-5.90); RDW 12.3 % (11.5-15.5)
[2021-01-29 03:00] LABS: Partial Thromboplastin Time 45.6 sec (22.0-30.0); Prothrombin Time 10.9 sec (9.0-12.0)
[2021-01-29 03:36] LABS: ALT 23 U/L (4-49); AST 30 U/L (17-59); African American GFR (CKD) >90 (>60 ml/min/1.73 sqM); Albumin 3.6 g/dL (3.5-5.0); Albumin/Globulin Ratio 1.3; Alkaline Phosphatase 76 U/L (38-126); Anion Gap 7 mmol/L; Blood Urea Nitrogen 16 mg/dL (9-20); Calcium 9.3 mg/dL (8.4-10.2); Carbon Dioxide 27 mmol/L (22-30); Chloride 104 mmol/L (98-107); Globulin 2.7 g/dL; Glucose 103 mg/dL (74-99); Non-African American GFR(CKD) >90 (>60 ml/min/1.73 sqM); Potassium 4.6 mmol/L (3.5-5.1); Sodium 138 mmol/L (137-145); Total Bilirubin 1.2 mg/dL (0.2-1.3); Total Protein 6.3 g/dL (6.3-8.2)
[2021-01-29] MEDS: METOPROLOL TARTRATE 12.5 MG TAB PO SCH ×2 (09:40→21:22)
[2021-01-29] MEDS: ASPIRIN 81 MG PO SCH (09:40)
[2021-01-29] MEDS ORDERED: ALPRAZolam 0.5 MG TAB PO PRN (09:57)
[2021-01-29] MEDS ORDERED: ALPRAZolam 0.25 MG TAB PO PRN (09:57)
[2021-01-29] MEDS ORDERED: NITROGLYCERIN SL TABS 0.4 MG TAB SUBLINGUAL PRN (09:57)
--- NOTE | 2021-01-29 13:27 | P.CRDCN ---
History of Present Illness Consult date: 01/29/21 History of present illness: HISTORY OF PRESENT ILLNESS: This is a 65 year old male with a past medical history significant for coronary artery disease with previous stenting of the LAD x 2 last in 2013, hypertension, and hyperlipidemia. Patient follows in the office with Dr. Nolan. We have been asked to see the patient in consultation for chest pain. Patient examined at the bedside. Patient states he was washing his motorhome yesterday when he developed pain across his chest. He reports SOB. He reports nausea and states he threw up once. Patient reports compliance with his medications. Troponins were abnormal. He was started on IV heparin. Currently denies chest pain or pressure. EKG reveals sinus mechanism. Chest XR negative. Vital signs stable. Last cath was in 2019 revealing patent stents to proximal and mid LAD and intermediate disease to the circumflex REVIEW OF SYSTEMS: At the time of my exam: CONSTITUTIONAL: Denies fever or chills. HEENT: Denies blurred vision, vision changes, or eye pain. Denies hemoptysis CARDIOVASCULAR: Denies chest pain. Denies orthopnea. Denies PND. Denies palpitations RESPIRATORY: Denies shortness of breath. GASTROINTESTINAL: Denies abdominal pain. Denies nausea or vomiting. HEMATOLOGIC: Denies bleeding disorders. GENITOURINARY: Denies any blood in urine. SKIN: Denies pruitis. Denies rash. PHYSICAL EXAM: VITAL SIGNS: Reviewed. GENERAL: Well-developed in no acute distress. HEENT: Head is normocephalic. Pupils are equal, round. Sclerae anicteric. Mucous membranes of the mouth are moist. Neck supple. No JVD or thyromegaly LUNGS: Respirations even and unlabored. Lungs essentially clear to auscultation bilaterally. HEART: Regular rate and rhythm. S1 and S2 heard. ABDOMEN: Soft. Nondistended. Nontender. EXTREMITIES: Normal range of motion. No clubbing or cyanosis. Peripheral pulses intact. No lower extremity edema NEUROLOGIC: Awake and alert. Oriented x 3. ASSESSMENT: Non-STEMI Coronary artery disease with previous PCI to LAD Hypertension Hyperlipidemia PLAN: Continue home cardiac medications Add aspirin and metoprolol Continue IV heparin Obtain 2D echo Patient to undergo cardiac cath tomorrow with Dr. Nolan Further recommendations pending patient course Nurse practitioner note has been reviewed by physician. Signing provider agrees with the documented findings, assessment, and plan of care. Past Medical History Past Medical History: Coronary Artery Disease (CAD), Chest Pain / Angina, Hypertension Additional Past Medical History / Comment(s): previously charted that pt had mi- Pt stated he was never told he had an mi Last Myocardial Infarction Date:: 03/2013 History of Any Multi-Drug Resistant Organisms: None Reported Past Surgical History: Heart Catheterization, Heart Catheterization With Stent Additional Past Surgical History / Comment(s): several heart caths and pt stated he has 2 stents Past Anesthesia/Blood Transfusion Reactions: No Reported Reaction Additional Past Anesthesia/Blood Transfusion Reaction / Comment(s): "has never had a blood transfusion" Date of Last Stent Placement:: 03/2013 Past Psychological History: No Psychological Hx Reported Smoking Status: Never smoker Past Alcohol Use History: Occasional Past Drug Use History: None Reported - Past Family History Mother Family Medical History: Coronary Artery Disease (CAD), Myocardial Infarction ([place]) Additional Family Medical History / Comment(s): Mother in her mid 60's from multiple medical problems. Father Family Medical History: Coronary Artery Disease (CAD) Additional Family Medical History / Comment(s): Father is 89 yrs old. Medications and Allergies Home Medications Medication Instructions Recorded Confirmed Type Clopidogrel Bisulfate [Clopidogrel] 75 mg PO HS 03/15/16 01/28/21 History Cholecalciferol [Vitamin D3 (25 1,000 unit PO DAILY 03/06/20 01/28/21 History Mcg = 1000 Iu)] Multivitamins, Thera [Multivitamin 1 tab PO DAILY 03/06/20 01/28/21 History (formulary)] Atorvastatin [Lipitor] 20 mg PO HS 01/28/21 01/28/21 History Nitroglycerin Sl Tabs [Nitrostat] 0.4 mg SUBLINGUAL Q5M PRN 01/28/21 01/28/21 History Vitamin B Complex 1 cap PO DAILY 01/28/21 01/28/21 History Allergies Allergy/AdvReac Type Severity Reaction Status Date / Time prasugrel [From Effient] AdvReac "DID NOT Verified 01/28/21 18:34 FEEL WELL" Physical Exam Vitals: Vital Signs Temp Pulse Pulse Resp BP Pulse Ox 01/29/21 03:15 98.4 F 72 16 105/53 98 01/28/21 20:00 57 L 18 118/63 95 01/28/21 19:45 60 01/28/21 17:03 96.8 F L 62 20 147/72 100 Intake and Output 01/28/21 01/29/21 01/29/21 22:59 06:59 14:59 Intake Total 64.963 Balance 64.963 Intake: Intake, IV Titration 64.963 Amount Heparin Sod,Pork in 0.45% 64.963 NaCl 25,000 unit In 0.45 % NaCl 1 250ml.bag @ 12 UNITS/KG/HR 8.981 mls/hr IV .Q24H [facility] Rx#: [id number] Other: Weight 74.843 kg Results 01/29/21 02:13 01/29/21 02:13 Cardiac Enzymes 01/28/21 01/28/21 01/28/21 Range/Units 17:50 17:50 21:51 AST 26 (17-59) U/L Troponin I <0.012 0.382 H* (0.000-0.034) ng/mL 01/29/21 01/29/21 Range/Units 02:13 02:13 AST 30 (17-59) U/L Troponin I 0.922 H* (0.000-0.034) ng/mL Coagulation 01/28/21 01/29/21 Range/Units 17:50 02:13 PT 10.3 10.9 (9.0-12.0) sec APTT 21.9 L 45.6 H (22.0-30.0) sec CBC 01/28/21 01/29/21 Range/Units 17:50 02:13 WBC 8.3 7.0 (3.8-10.6) k/uL RBC 4.71 4.44 (4.30-5.90) m/uL Hgb 14.8 13.9 (13.0-17.5) gm/dL Hct 43.0 41.2 (39.0-53.0) % Plt Count 237 212 (150-450) k/uL Comprehensive Metabolic Panel 01/28/21 01/29/21 Range/Units 17:50 02:13 Sodium 137 138 (137-145) mmol/L Potassium 4.0 4.6 (3.5-5.1) mmol/L Chloride 101 104 (98-107) mmol/L Carbon Dioxide 26 27 (22-30) mmol/L BUN 19 16 (9-20) mg/dL Creatinine 0.98 0.80 (0.66-1.25) mg/dL Glucose 121 H 103 H (74-99) mg/dL Calcium 9.9 9.3 (8.4-10.2) mg/dL AST 26 30 (17-59) U/L ALT 27 23 (4-49) U/L Alkaline Phosphatase 90 76 (38-126) U/L Total Protein 7.2 6.3 (6.3-8.2) g/dL Albumin 4.4 3.6 (3.5-5.0) g/dL Current Medications Generic Name Dose Route Start Last Admin Trade Name Freq PRN Reason Stop Dose Admin Atorvastatin Calcium 20 mg 01/28/21 21:00 01/28/21 22:52 Atorvastatin 20 Mg Tab PO 20 mg HS YOHANA Administration Clopidogrel Bisulfate 75 mg 01/28/21 21:00 01/28/21 22:52 Clopidogrel 75 Mg Tab PO 75 mg HS YOHANA Administration Heparin Sodium (Porcine) 0 unit 01/28/21 19:11 Heparin Sodium 1,000 Un/Ml (10ml Vl) IV PER PROTOCOL PRN Low PTT Protocol Heparin Sodium/Sodium Chloride 250 mls @ 8.981 mls/hr 01/28/21 19:15 01/29/21 03:17 25,000 unit/ Sodium Chloride IV 12 units/kg/hr .Q24H YOHANA 8.981 mls/hr Titration Protocol 12 UNITS/KG/HR Intake and Output 01/28/21 01/29/21 01/29/21 22:59 06:59 14:59 Intake Total 64.963 Balance 64.963 Intake: Intake, IV Titration 64.963 Amount Heparin Sod,Pork in 0.45% 64.963 NaCl 25,000 unit In 0.45 % NaCl 1 250ml.bag @ 12 UNITS/KG/HR 8.981 mls/hr IV .Q24H YOHANA Rx#: [id number] Other: Weight 74.843 kg 01/29/21 02:13 01/29/21 02:13
--- NOTE | 2021-01-29 18:48 | HP ---
HISTORY AND PHYSICAL CHIEF COMPLAINT: Chest pain. HISTORY OF PRESENT ILLNESS: This is the first known admission for this 65-year-old white male. He was last seen in my office in February of 2020. He has a history of hypertension, coronary artery disease, hyperlipidemia. He presented to the emergency room with typical chest pain. In the ER, his EKG and enzymes were normal. Review of systems, past medical history, family history, and personal and social histories could not be obtained at this time and are deferred. When he was seen last, he was on atorvastatin 80, metoprolol 25 one-half tablet twice a day, ezetimibe 10 mg once a day, aspirin, and clopidogrel 75 once a day. He is ALLERGIC TO EFFIENT. He is a former smoker. Physical examination is deferred. IMPRESSION: 1. Chest pain. 2. History of coronary artery disease. 3. History of hyperlipidemia. PLAN: Cardiology consult and repeat cardiac enzymes. MMODL / IJN: [id number] /
--- NOTE | 2021-01-29 18:51 | PN ---
PROGRESS NOTE DATE OF SERVICE: 01/29/2021 CHIEF COMPLAINT: Chest pain. HISTORY OF PRESENT ILLNESS: This gentleman's troponins have elevated. He will be seen by Cardiology. Physical exam is deferred. IMPRESSION: 1. Chest pain with elevated troponin. 2. History of coronary artery disease. PLAN: Await further assessment by Cardiology. MMODL / IJN: [id number] /
[2021-01-29] MEDS ORDERED: ATORVASTATIN 80 MG TAB PO SCH (21:00)
[2021-01-29] MEDS: HEPARIN SOD,PORK IN 0.45% NACL 25,000 UNIT in 0.45% NACL 1 250ML.BAG IV SCH (21:22)
[2021-01-29] MEDS: CLOPIDOGREL 75 MG TAB PO SCH (21:22)
[2021-01-29 22:43] LABS: Chol/HDL Ratio 2.52 Ratio; HDL Cholesterol 61.4 mg/dL (40.00-60.00); Triglycerides 67.8 mg/dL (0.00-149.00); VLDL Calculation 13.56 mg/dL (5.00-40.00)
[2021-01-30] MEDS: SODIUM CHLORIDE 0.9% 1,000 ML in EMPTY BAG 1 BAG IV SCH ×2 (00:48→16:52)
[2021-01-30 05:15] VITALS: TEMP 98.5
[2021-01-30] MEDS ORDERED: ASPIRIN 325 MG TAB PO ONE (06:00)
[2021-01-30] MEDS ORDERED: ATORVASTATIN 80 MG TAB PO ONE (06:00)
[2021-01-30] MEDS: ASPIRIN 81 MG PO SCH (06:12)
[2021-01-30] MEDS ORDERED: HEPARIN SODIUM,PORCINE 2,500 UNIT in SODIUM CHLORIDE 0.9% 250 ML IRRIGATION PRN (07:00)
[2021-01-30] MEDS ORDERED: HEPARIN SODIUM,PORCINE 10,000 UNIT in SODIUM CHLORIDE 0.9% 1,000 ML IRRIGATION PRN (07:00)
[2021-01-30] MEDS ORDERED: LIDOCAINE 1% INJ 10MG/ML (20 ML MDV) ONE (07:33)
[2021-01-30] MEDS ORDERED: fentaNYL (PF) 50 MCG/ML 2 ML AMP ONE (07:33)
[2021-01-30] MEDS ORDERED: HEPARIN SODIUM 1,000 UN/ML (10ML VL) ONE (07:33)
[2021-01-30] MEDS ORDERED: VERAPAMIL 2.5 MG/ML 2 ML AMP ONE (07:33)
[2021-01-30] MEDS ORDERED: MIDAZOLAM 2 MG/2 ML VIAL IV ONE (08:00)
[2021-01-30] MEDS ORDERED: LIDOCAINE 1% INJ 10MG/ML (20 ML MDV) SQ ONE (08:03)
[2021-01-30] MEDS ORDERED: VERAPAMIL SYRINGE (5 MG/10 ML) INTRAARTER ONE (08:04)
[2021-01-30] MEDS ORDERED: fentaNYL (PF) 50 MCG/ML 2 ML AMP IV ONE (08:05)
[2021-01-30] MEDS ORDERED: IV FLUID CONTINUATION 500 ML IV ONE (08:07)
[2021-01-30] MEDS ORDERED: IOPAMIDOL-370 125ML BTL INJ ONE (08:12)
[2021-01-30] MEDS ORDERED: RX INFO: IV CONTRAST WAS GIVEN 1 EACH MISC MISCELLANE PRN (08:19)
[2021-01-30] MEDS ORDERED: SODIUM CHLORIDE 0.9% 1,000 ML IV SCH (08:30)
[2021-01-30 08:38] VITALS: RESP 16
[2021-01-30] MEDS: METOPROLOL TARTRATE 12.5 MG TAB PO SCH (09:26)
--- NOTE | 2021-01-30 10:25 | CC ---
CARDIAC CATHETERIZATION REPORT DATE OF PROCEDURE: 01/30/2021 PERFORMING PHYSICIAN: Arnie Nolan M.D. PROCEDURES PERFORMED: 1. Selective right and left coronary angiogram. 2. Left heart catheterization. INDICATION: This is a 65-year-old gentleman with hypertension and dyslipidemia and coronary artery disease with prior stenting of the LAD who presented to the hospital with chest discomfort and he was ruled in for acute coronary syndrome. APPROACH: Right radial artery. COMPLICATIONS: None. LEVEL OF SEDATION: Moderate, with sedation length of 13 minutes. PROCEDURE DESCRIPTION: After obtaining informed consent, the patient was brought to the cardiac refuse laborer. The right radial artery was cannulated using micropuncture technique. The micropuncture wire passed easily. Then I placed a 6-Japanese sheath at the right radial artery. I gave the patient 2 mg of verapamil IA and 6000 units of heparin IV. Selective right and left coronary angiogram was performed with JR4 and JL3.5 catheters. Left heart catheterization was performed using 5-Japanese JR4 catheter which crossed the aortic valve. Then I did pull back across the valve. The procedure was completed without any complication. SELECTIVE CORONARY ANGIOGRAM: 1. The RCA is a large-caliber vessel. It is a dominant vessel. The RCA is mildly calcified. Proximally it has a lesion that appeared to be in the range of 50% to 60%. The mid RCA and distal RCA appeared to have mild disease only. The RCA distally bifurcates into PDA and PLV branches. Both appeared to be angiographically normal. 2. The left main is angiographically normal. It bifurcates into LCX and LAD. 3. The LCX is a large-caliber vessel. It is a nondominant vessel. The LCX has an intermediate lesion in the mid portion by the bifurcation of a large OM branch which appeared to be also in the range of 50%. 4. The LAD. The ostial LAD is stented and the stent is patent. The proximal LAD and the mid LAD are stented and the stents are patent. The LAD distally appeared to be angiographically normal. The LAD gives rise to a medium-sized diagonal branch which has an ostial lesion that appeared to be in the range of 60% and seems to be unchanged compared to before. 5. HEMODYNAMICS: The LVEDP was about 12 mmHg without significant gradient across the aortic valve. CONCLUSION: 1. Intermediate two-vessel coronary artery disease involving the proximal RCA and left circumflex. 2. Patent stents in the ostial as well as proximal left anterior descending artery. 3. Normal LVEDP. POSTPROCEDURE MANAGEMENT: 1. Maximize medical treatment. 2. Consider dual anti-platelet therapy in addition to high-intensity statin. 3. Consider medical treatment for the intermediate lesion in the RCA and LCX for now. 4. Follow up with the patient. . MMODL / IJN: [id number] /
--- NOTE | 2021-01-30 12:00 | ECHOF ---
Referral Reason:chest pain, LV function, NSTEMI MEASUREMENTS -------- HEIGHT: 177.8 cm WEIGHT: 74.8 kg BP: 124/73 RVIDd: 2.7 cm (< 3.3) IVSd: 1.0 cm (0.6 - 1.1) LVIDd: 4.3 cm (3.9 - 5.3) LVPWd: 1.3 cm (0.6 - 1.1) IVSs: 1.4 cm LVIDs: 2.4 cm LVPWs: 1.8 cm LAESV Index (A-L): 34.88 ml/m Ao Diam: 2.7 cm (2.0 - 3.7) AV Cusp: 1.9 cm (1.5 - 2.6) LA Diam: 3.6 cm (2.7 - 3.8) MV EXCURSION: 18.973 mm (> 18.000) MV EF SLOPE: 59 mm/s (70 - 150) EPSS: 0.3 cm MV E Kailash: 0.78 m/s MV DecT: 159 ms MV A Kailash: 0.57 m/s MV E/A Ratio: 1.37 RAP: 5.00 mmHg RVSP: 23.18 mmHg FINDINGS -------- Sinus rhythm. This was a technically adequate study. The left ventricular size is normal. There is mild concentric left ventricular hypertrophy. Overa ll left ventricular systolic function is normal with, an EF between 55 - 60 %. The diastolic fillin g pattern is normal for the age of the patient 7.01. The right ventricle is normal in size. LA is midly dilated 29-33ml/m2. The right atrial size is normal. Interatrial and interventricular septum intact. The aortic valve is trileaflet, and appears structurally normal. No aortic stenosis or regurgitation. The mitral valve is normal. Mild mitral regurgitation is present. The tricuspid valve appears structurally normal. Mild tricuspid regurgitation present. Right vent ricular systolic pressure is normal at < 35 mmHg. The right ventricular systolic pressure, as measu red by Doppler, is 23.18mmHg. There is no pulmonic regurgitation present. The aortic root size is normal. Normal inferior vena cava with normal inspiratory collapse consistent with estimated right atrial pre ssure of 5 mmHg. There is no pericardial effusion. CONCLUSIONS -------- 1. There is mild concentric left ventricular hypertrophy. 2. Overall left ventricular systolic function is normal with, an EF between 55 - 60 %. 3. LA is midly dilated 29-33ml/m2. 4. The aortic valve is trileaflet, and appears structurally normal. No aortic stenosis or regurgitati on. 5. Mild mitral regurgitation is present. 6. Mild tricuspid regurgitation present. GREEK PROFESSOR: Jana Cochran RDCS
[2021-01-30 16:53] VITALS: BP 142/75; PULSE 53
--- NOTE | 2021-01-30 20:26 | DS ---
DISCHARGE SUMMARY DATE OF DISCHARGE: 01/30/2021 CHIEF COMPLAINT: Chest pain. HISTORY OF PRESENT ILLNESS AND PHYSICAL EXAMINATION: Details of this man's history and physical can be found in the initial workup. LABORATORY STUDIES: While he was in the hospital he had laboratory studies, details of which can be found in the laboratory section of his chart. COURSE IN THE HOSPITAL: After admission he was placed on bedrest and started on intravenous fluids. Cardiac enzymes were elevated and he was taken to the cathode washer by Cardiology. He had had two previous stents in the right coronary artery and the circumflex and they were normal. There was no other acute occlusion. He did well postoperatively and it was felt that he could go home. He will go home on his usual diet and light activity. His Lipitor will be increased to 80 mg once a day and metoprolol will be added. He will be seen in the office in several days. He will be on Plavix and aspirin as well. FINAL DIAGNOSES: 1. Acute myocardial infarction. 2. History of coronary artery disease. OPERATION: Cardiac catheterization. CONSULTATION: Cardiology. He is improved. MMMAYNORL / CONCHITAN: [id number] /
== END 2021-01-30 18:40 | disposition home or self-care (01) | DRG 282 ==
LOC: EC 17:00 → 6NMEDSUR 19:13 → 3SCARD 01-29 05:57 → OBSVTOIN 01-30 10:14
PROVIDERS: ADMIT Family Medicine; ATTEND Family Medicine
PROC: 4A023N7 Measurement of Cardiac Sampling and Pressure, Left Heart, Percutaneous Approach (ICD-10-PCS; principal; 2021-01-30 07:30)
PROC: B2111ZZ Fluoroscopy of Multiple Coronary Arteries using Low Osmolar Contrast (ICD-10-PCS; principal; 2021-01-30 07:30)
DX: I21.4 Non-ST elevation (NSTEMI) myocardial infarction (principal); I10 Essential (primary) hypertension; E78.5 Hyperlipidemia, unspecified; I25.10 Atherosclerotic heart disease of native coronary artery without angina pectoris; I25.2 Old myocardial infarction; Z79.899 Other long term (current) drug therapy; Z82.49 Family history of ischemic heart disease and other diseases of the circulatory system; Z87.891 Personal history of nicotine dependence; Z95.5 Presence of coronary angioplasty implant and graft; Z88.0 Allergy status to penicillin; Z20.822 Contact with and (suspected) exposure to COVID-19
CPT/HCPCS: 36415; 71046; 80053; 80061; 83735; 83880; 84484; 85025; 85610; 85730; 87635; 93005; 93306; 93458; 99285

== ENCOUNTER → 2021-04-26 | Outpatient (CLI) | payer BC ==
[2021-04-26 14:42] LABS: ALT 34 U/L (10-49); AST 26 U/L (14-35); Chol/HDL Ratio 2.15 Ratio; LDL Cholesterol,Calculated 51.9 mg/dL (0.0-131.0); VLDL Calculation 10.84 mg/dL (5.00-40.00)
== END | disposition home or self-care (01) ==
LOC: LABWHC1 07:38
PROVIDERS: ATTEND Internal Medicine Interventional Cardiology
DX: E78.2 Mixed hyperlipidemia (principal)
CPT/HCPCS: 36415; 80061; 84450; 84460

== ENCOUNTER 2023-03-07 18:28 | Emergency (ER) | payer MEDICARE, OTHER ==
[2023-03-07 18:42] VITALS: TEMP 98
--- NOTE | 2023-03-07 19:03 | ED ---
Chest Pain HPI - General Chief Complaint: Chest Pain Stated Complaint: Chest Pain Time Seen by Provider: 03/07/23 18:41 Source: patient, family, RN notes reviewed, old records reviewed Mode of arrival: ambulatory Limitations: no limitations - History of Present Illness Initial Comments: This is a 67-year-old male to the emergency department for evaluation of chest pain. History of ND with stents. Patient has persistent chest pain here in the emergency department. Patient has no shortness of breath no travel show sick contacts no fevers no other complaints today. MD Complaint: chest pain -: days(s) Onset: during rest, during exertion Pain Location: substernal, left chest Pain Radiation: LUE Severity: mild Quality: tightness Consistency: constant Improves With: nothing Anginal Symptoms: nausea - Related Data Home Medications Medication Instructions Recorded Confirmed Clopidogrel Bisulfate [Clopidogrel] 75 mg PO HS 03/15/16 03/07/23 Vitamin B Complex 1 cap PO DAILY 01/28/21 03/07/23 Chlorhexidine Gluconate [Peridex] 15 ml PO DAILY 03/07/23 03/07/23 Metoprolol Succinate (ER) [Toprol 25 mg PO DAILY 03/07/23 03/07/23 Xl] Previous Rx's Medication Instructions Recorded Atorvastatin [Lipitor] 80 mg PO HS #90 tab 01/30/21 Allergies Allergy/AdvReac Type Severity Reaction Status Date / Time prasugrel [From Effient] AdvReac "DID NOT Verified 03/07/23 20:17 FEEL WELL" Review of Systems ROS Statement: Those systems with pertinent positive or pertinent negative responses have been documented in the HPI. ROS Other: All systems not noted in ROS Statement are negative. EKG Findings - EKG Comments: EKG Findings:: She is sinus bradycardia 59 W[place] 141 QRS 96 QTc 401 Past Medical History Past Medical History: Coronary Artery Disease (CAD), Chest Pain / Angina Additional Past Medical History / Comment(s): previously charted that pt had mi- Pt stated he was never told he had an mi Last Myocardial Infarction Date:: 03/2013 History of Any Multi-Drug Resistant Organisms: None Reported Past Surgical History: Heart Catheterization, Heart Catheterization With Stent Additional Past Surgical History / Comment(s): several heart caths and pt stated he has 2 stents Past Anesthesia/Blood Transfusion Reactions: No Reported Reaction Additional Past Anesthesia/Blood Transfusion Reaction / Comment(s): "has never had a blood transfusion" Date of Last Stent Placement:: 03/2013 Past Psychological History: No Psychological Hx Reported Smoking Status: Never smoker Past Alcohol Use History: Occasional Past Drug Use History: None Reported - Past Family History Mother Family Medical History: Coronary Artery Disease (CAD), Myocardial Infarction (ND) Additional Family Medical History / Comment(s): Mother in her mid 60's from multiple medical problems. Father Family Medical History: Coronary Artery Disease (CAD) Additional Family Medical History / Comment(s): Father is 89 yrs old. General Exam Limitations: no limitations General appearance: alert, in no apparent distress Head exam: Present: atraumatic, normocephalic, normal inspection Eye exam: Present: normal appearance, PERRL, EOMI. Absent: scleral icterus, conjunctival injection, periorbital swelling ENT exam: Present: normal exam, mucous membranes moist Neck exam: Present: normal inspection. Absent: tenderness, meningismus, lymphadenopathy Respiratory exam: Present: normal lung sounds bilaterally. Absent: respiratory distress, wheezes, rales, rhonchi, stridor Cardiovascular Exam: Present: regular rate, normal rhythm, normal heart sounds. Absent: systolic murmur, diastolic murmur, rubs, gallop, clicks GI/Abdominal exam: Present: soft, normal bowel sounds. Absent: distended, tenderness, guarding, rebound, rigid Extremities exam: Present: normal inspection, full ROM, normal capillary refill. Absent: tenderness, pedal edema, joint swelling, calf tenderness Back exam: Present: normal inspection Neurological exam: Present: alert, oriented X3, CN II-XII intact Psychiatric exam: Present: normal affect, normal mood Skin exam: Present: warm, dry, intact, normal color. Absent: rash Course Vital Signs 03/07/23 03/07/23 03/07/23 18:31 19:00 20:00 Temperature 98 F Pulse Rate 72 66 58 L Respiratory 18 18 17 Rate Blood Pressure 149/82 137/85 124/80 O2 Sat by Pulse 100 98 96 Oximetry - Reevaluation(s) Reevaluation #1: Medical records reviewed Reevaluation #2: Patient chest pain is resolved Reevaluation #3: Patient informed of results and questions answered Reevaluation #4: 03/07/23 20:48 Was pt. sent in by a medical professional or institution (ZIGGY Uriostegui, BUTTONHOLE TACKER, urgent care, hospital, or half-way...) When possible be specific @ -no Did you speak to anyone other than the patient for history (EMS, parent, family, police, friend...)? What history was obtained from this source @ -no Did you review nursing and triage notes (agree or disagree)? Why? @ -agree Are old charts reviewed (outside hosp., previous admission, EMS record, old EKG, old radiological studies, urgent care reports/EKG's, half-way records)? Repo rt findings @ -yes Differential Diagnosis (chest pain, altered mental status, abdominal pain women, abdominal pain men, vaginal bleeding, weakness, fever, dyspnea, syncope, headache, dizziness, GI bleed, back pain, seizure, CVA, palpatations, mental health, musculoskeletal)? @ -prior EKG interpreted by me (3pts min.). @ -yes X-rays interpreted by me (1pt min.). @ -yes negative for acute disease CT interpreted by me (1pt min.). @ -no U/S interpreted by me (1pt. min.). @ -no What testing was considered but not performed or refused? (CT, X-rays, U/S, labs)? Why? @ -none What meds were considered but not given or refused? Why? @ -none Did you discuss the management of the patient with other professionals (professionals i.e. ZIGGY Uriostegui, BUTTONHOLE TACKER, lab, RT, psych nurse, sexual assault social worker, rail filler, te acher, assault amphibious vehicle officer, business case analyst)? Give summary @ -no Was smoking cessation discussed for >3mins.? @ -no Was critical care preformed (if so, how long)? @ -no Were there social determinants of health that impacted care today? How? (Homelessness, low income, unemployed, alcoholism, drug addiction, transportation, low edu. Level, literacy, decrease access to med. care, correction, rehab)? @ -none Was there de-escalation of care discussed even if they declined (Discuss DNR or withdrawal of care, Hospice)? DNR status @ -no What co-morbidities impacted this encounter? (DM, HTN, Smoking, COPD, CAD, Cancer, CVA, ARF, Chemo, Hep., AIDS, mental health diagnosis, sleep apnea, morbid obesity)? @ -none Was patient admitted / discharged? Hospital course, mention meds given and route, prescriptions, significant lab abnormalities, going to OR and other pertinent info. @ - 67 male to the emergency department for evaluation patient has history of ND with stent coming in for chest pain today. 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 @ -no Drug Therapy requiring intensive monitoring for toxicity (Heparin, Nitro, Insulin, Cardizem)? @ -no Were any procedures done? @ -no Diagnosis/symptom? @ -Chest pain Acute, or Chronic, or Acute on Chronic? @ -Acute Uncomplicated (without systemic symptoms) or Complicated (systemic symptoms)? @ -Complicated Side effects of treatment? @ -no Exacerbation, Progression, or Severe Exacerbation? @ -exacerbation Poses a threat to life or bodily function? How? (Chest pain, USA, ND, pneumonia, PE, COPD, DKA, ARF, appy, cholecystitis, CVA, Diverticulitis, Homicidal, Suicidal, threat to staff... and all critical care pts) @ -yes for chest pain and ACS Reevaluation #5: Differential Chest Pain: Stable Angina, Unstable Angina, STEMI, NSTEMI Aortic Dissection, Pneumothorax, Musculoskeletal, Esophageal Spasm GERD, Cholecystitis, Pancreatitis, Zoster, this is not meant to be an all-inclusive list. Chest Pain MDM - MDM 67 male to the emergency department for evaluation patient has history of ND with stent coming in for chest pain today. 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
[2023-03-07 19:43] LABS: Basophils % (A) 0 %; Eosinophils # (A) 0.3 k/uL (0-0.7); Eosinophils % (A) 3 %; HCT 43.6 % (39.0-53.0); HGB 15.2 gm/dL (13.0-17.5); Lymphocytes # (A) 1.7 k/uL (1.0-4.8); Lymphocytes % (A) 21 %; MCH 30.8 pg (25.0-35.0); MCHC 34.8 g/dL (31.0-37.0); MCV 88.4 fL (80.0-100.0); Mean Platelet Volume 8.5; Monocytes # (A) 0.6 k/uL (0-1.0); Monocytes % (A) 8 %; Neutrophils # (A) 5.3 k/uL (1.3-7.7); Neutrophils % (A) 64 %; Platelet Count 219 k/uL (150-450); RBC 4.93 m/uL (4.30-5.90); RDW 12.3 % (11.5-15.5); WBC 8.2 k/uL (3.8-10.6)
--- NOTE | 2023-03-07 19:53 | XR ---
EXAMINATION TYPE: XR chest 2V DATE OF EXAM: 03/07/2023 7:20 PM CLINICAL INDICATION:Male, 67 years old with history of Chest Pain COMPARISON: Chest radiographs from 12/28/2020 TECHNIQUE: XR chest 2V Frontal and lateral views of the chest. FINDINGS: Lungs/Pleura: There is no evidence of pleural effusion, focal consolidation, or pneumothorax. Pulmonary vascularity: Unremarkable. Heart/mediastinum: Cardiomediastinal silhouette is unremarkable. Musculoskeletal: No acute osseous pathology. Other findings: None IMPRESSION: No acute cardiopulmonary disease/process.
[2023-03-07 19:55] LABS: ALT 36 U/L (4-49); AST 33 U/L (17-59); African American GFR (CKD) >90 (>60 ml/min/1.73 sqM); Albumin 4.3 g/dL (3.5-5.0); Alkaline Phosphatase 111 U/L (38-126); Anion Gap 13 mmol/L; Blood Urea Nitrogen 12 mg/dL (9-20); Calcium 9.6 mg/dL (8.4-10.2); Carbon Dioxide 26 mmol/L (22-30); Chloride 99 mmol/L (98-107); Glucose 84 mg/dL (74-99); INR 0.9 (<1.2); Lipase 161 U/L (23-300); Magnesium 2.1 mg/dL (1.6-2.3); Non-African American GFR(CKD) >90 (>60 ml/min/1.73 sqM); Partial Thromboplastin Time 23.9 sec (22.0-30.0); Potassium 3.7 mmol/L (3.5-5.1); Prothrombin Time 10.5 sec (10.0-12.5); Sodium 138 mmol/L (137-145); Total Bilirubin 1.8 mg/dL (0.2-1.3); Total Protein 7.1 g/dL (6.3-8.2)
[2023-03-07 20:03] LABS: NT-Pro-B-Type Natriuretic Pept 64 pg/mL
[2023-03-07 20:33] VITALS: BP 124/80; PULSE 58; RESP 17
== END 2023-03-07 21:05 | disposition home or self-care (01) ==
LOC: EC 18:28
DX: I25.110 Atherosclerotic heart disease of native coronary artery with unstable angina pectoris (principal); Z88.8 Allergy status to other drugs, medicaments and biological substances; Z79.02 Long term (current) use of antithrombotics/antiplatelets
CPT/HCPCS: 36415; 71046; 80053; 83690; 83735; 83880; 84484; 85025; 85379; 85610; 85730; 93005; 99285

== ENCOUNTER → 2023-03-27 | Outpatient (CLI) | payer MEDICARE, OTHER ==
[2023-03-27 16:11] LABS: ALT 48 U/L (10-49); AST 30 U/L (14-35); Chol/HDL Ratio 2.28 Ratio; LDL Cholesterol,Calculated 51.7 mg/dL (0.0-131.0); VLDL Calculation 14.64 mg/dL (5.00-40.00)
== END | disposition home or self-care (01) ==
LOC: LABWHC1 11:03
PROVIDERS: ATTEND Internal Medicine Interventional Cardiology
DX: E78.00 Pure hypercholesterolemia, unspecified (principal)
CPT/HCPCS: 36415; 80061; 84450; 84460

== ENCOUNTER 2023-06-02 12:06 | Observation (INO) | payer MEDICARE, OTHER ==
--- NOTE | 2023-06-02 12:32 | ED ---
General Adult HPI - General Chief complaint: Chest Pain Stated complaint: Chest Pain Time Seen by Provider: 06/02/23 12:10 Source: patient, RN notes reviewed, old records reviewed Mode of arrival: ambulatory Limitations: no limitations - History of Present Illness Initial comments: This is a 67-year-old male who presents to the emergency department complaining of chest pressure on and off for the last few weeks. Patient states he is also had some lightheadedness and tingling sensation in his extremities. Patient states he had no difficulty breathing. The pressure does not radiate anywhere. Patient denies any recent fever chills or cough. Patient denies headache patient denies any numbness or weakness. Patient denies any abdominal pain elizabeth ent has nausea vomiting diarrhea. - Related Data Home Medications Medication Instructions Recorded Confirmed Clopidogrel Bisulfate [Clopidogrel] 75 mg PO HS 03/15/16 03/07/23 Vitamin B Complex 1 cap PO DAILY 01/28/21 03/07/23 Chlorhexidine Gluconate [Peridex] 15 ml PO DAILY 03/07/23 03/07/23 Metoprolol Succinate (ER) [Toprol 25 mg PO DAILY 03/07/23 03/07/23 Xl] Previous Rx's Medication Instructions Recorded Atorvastatin [Lipitor] 80 mg PO HS #90 tab 01/30/21 Allergies Allergy/AdvReac Type Severity Reaction Status Date / Time prasugrel [From Effient] AdvReac "DID NOT Verified 03/07/23 20:17 FEEL WELL" Review of Systems ROS Statement: Those systems with pertinent positive or pertinent negative responses have been documented in the HPI. ROS Other: All systems not noted in ROS Statement are negative. Past Medical History Past Medical History: Coronary Artery Disease (CAD), Chest Pain / Angina Additional Past Medical History / Comment(s): previously charted that pt had mi- Pt stated he was never told he had an mi Last Myocardial Infarction Date:: 03/2013 History of Any Multi-Drug Resistant Organisms: None Reported Past Surgical History: Heart Catheterization, Heart Catheterization With Stent Additional Past Surgical History / Comment(s): several heart caths and pt stated he has 2 stents Past Anesthesia/Blood Transfusion Reactions: No Reported Reaction Additional Past Anesthesia/Blood Transfusion Reaction / Comment(s): "has never had a blood transfusion" Date of Last Stent Placement:: 03/2013 Past Psychological History: No Psychological Hx Reported Smoking Status: Never smoker Past Alcohol Use History: Occasional Past Drug Use History: None Reported - Past Family History Mother Family Medical History: Coronary Artery Disease (CAD), Myocardial Infarction (OR) Additional Family Medical History / Comment(s): Mother in her mid 60's from multiple medical problems. Father Family Medical History: Coronary Artery Disease (CAD) Additional Family Medical History / Comment(s): Father is 89 yrs old. General Exam - General Exam Comments Initial Comments: GENERAL: Patient is well-developed and well-nourished. Patient is nontoxic and well- hydrated and is in mild distress. ENT: Neck is soft and supple. No significant lymphadenopathy is noted. Oropharynx is clear. Moist mucous membranes. Neck has full range of motion without elici ting any pain. EYES: The sclera were anicteric and conjunctiva were pink and moist. Extraocular movements were intact and pupils were equal round and reactive to light. Eyelids were unremarkable. PULMONARY: Unlabored respirations. Good breath sounds bilaterally. No audible rales rhonchi or wheezing was noted. CARDIOVASCULAR: There is a regular rate and rhythm without any murmurs gallops or rubs. ABDOMEN: Soft and nontender with normal bowel sounds. SKIN: Skin is clear with no lesions or rashes and otherwise unremarkable. NEUROLOGIC: Patient is alert and oriented x3. Cranial nerves II through XII are grossly intact. Motor and sensory are also intact. Normal speech, volume and content. Symmetrical smile. MUSCULOSKELETAL: Normal extremities with adequate strength and full range of motion. LYMPHATICS: No significant lymphadenopathy is noted PSYCHIATRIC: Normal psychiatric evaluation. Limitations: no limitations Course Vital Signs 06/02/23 06/02/23 06/02/23 12:08 12:23 13:11 Temperature 98.2 F Pulse Rate 36 L 56 L 54 L Respiratory 16 18 20 Rate Blood Pressure 161/108 151/84 160/79 O2 Sat by Pulse 99 100 97 Oximetry Medical Decision Making - Medical Decision Making EKG is interpreted by myself but EKG shows sinus rhythm with a bigeminy pattern. ID intervals 146 QRS is 97 QT interval 374 QTc is 389. Patient's EKG shows no obvious ST segment elevation Was pt. sent in by a medical professional or institution (, PA, PRODUCTIVITY ENGINEER, urgent care, hospital, or usp...) When possible be specific @ -No Did you speak to anyone other than the patient for history (EMS, parent, family, police, friend...)? What history was obtained from this source @ -No Did you review nursing and triage notes (agree or disagree)? Why? @ -I reviewed and agree with nursing and triage notes Were old charts reviewed (outside hosp., previous admission, EMS record, old EKG, old radiological studies, urgent care reports/EKG's, usp records)? Report findings @ -I reviewed prior charts and prior lab work on this patient Differential Diagnosis (chest pain, altered mental status, abdominal pain women, abdominal pain men, vaginal bleeding, weakness, fever, dyspnea, syncope, headache, dizziness, GI bleed, back pain, seizure, CVA, palpatations, mental health, musculoskeletal)? @ -Differential Chest Pain: Stable Angina, Unstable Angina, STEMI, NSTEMI Aortic Dissection, Pneumothorax, Musculoskeletal, Esophageal Spasm GERD, Cholecystitis, Pancreatitis, Zoster, this is not meant to be an all-inclusive list. EKG interpreted by me (3pts min.). @ -As above X-rays interpreted by me (1pt min.). @ -Chest x-ray shows no acute abnormality CT interpreted by me (1pt min.). @ -None done U/S interpreted by me (1pt. min.). @ -None done What testing was considered but not performed or refused? (CT, X-rays, U/S, labs)? Why? @ -None What meds were considered but not given or refused? Why? @ -None Did you discuss the management of the patient with other professionals (professionals i.e. , PA, PRODUCTIVITY ENGINEER, lab, RT, psych nurse, social work instructor, glass products inspector, teacher, armoured corps officer, disease case manager rn)? Give summary @ -I spoke with [facility] hospitalist and they agreed to admit the patient. Was smoking cessation discussed for >3mins.? @ -No Was critical care preformed (if so, how long)? @ -No Were there social determinants of health that impacted care today? How? (Homelessness, low income, unemployed, alcoholism, drug addiction, transportation, low edu. Level, literacy, decrease access to med. care, [facility], rehab)? @ -No Was there de-escalation of care discussed even if they declined (Discuss DNR or withdrawal of care, Hospice)? DNR status @ -No What co-morbidities impacted this encounter? (DM, HTN, Smoking, COPD, CAD, Cance r, CVA, ARF, Chemo, Hep., AIDS, mental health diagnosis, sleep apnea, morbid obesity)? @ -None Was patient admitted / discharged? Hospital course, mention meds given and route, prescriptions, significant lab abnormalities, going to OR and other pertinent info. @ -Patient received aspirin nitroglycerin in the emergency department. Patient had multiple episodes where he was in bigeminy and he stated he can feel that. Patient will be admitted and consult will be put in for cardiology Undiagnosed new problem with uncertain prognosis? @ -No Drug Therapy requiring intensive monitoring for toxicity (Heparin, Nitro, Insulin, Cardizem)? @ -No Were any procedures done? @ -No Diagnosis/symptom? @ -Chest pain Acute, or Chronic, or Acute on Chronic? @ -Acute Uncomplicated (without systemic symptoms) or Complicated (systemic symptoms)? @ -Complicated Side effects of treatment? @ -No Exacerbation, Progression, or Severe Exacerbation? @ -No Poses a threat to life or bodily function? How? (Chest pain, USA, OR, pneumonia, PE, COPD, DKA, ARF, appy, cholecystitis, CVA, Diverticulitis, Homicidal, Suici shanon, threat to staff... and all critical care pts) @ -Yes this could lead to an OR and endorgan dysfunction - Lab Data Result diagrams: 06/02/23 12:31 06/02/23 12:31 Lab Results 06/02/23 06/02/23 06/02/23 Range/Units 12:31 12:31 12:31 WBC 7.0 (3.8-10.6) k/uL RBC 4.95 (4.30-5.90) m/uL Hgb 15.4 (13.0-17.5) gm/dL Hct 44.3 (39.0-53.0) % MCV 89.6 (80.0-100.0) fL MCH 31.1 (25.0-35.0) pg MCHC 34.7 (31.0-37.0) g/dL RDW 12.4 (11.5-15.5) % Plt Count 209 (150-450) k/uL MPV 8.8 Neutrophils % 64 % Lymphocytes % 22 % Monocytes % 6 % Eosinophils % 3 % Basophils % 1 % Neutrophils # 4.5 (1.3-7.7) k/uL Lymphocytes # 1.5 (1.0-4.8) k/uL Monocytes # 0.4 (0-1.0) k/uL Eosinophils # 0.2 (0-0.7) k/uL Basophils # 0.1 (0-0.2) k/uL PT 10.9 (10.0-12.5) sec INR 1.0 (<1.2) APTT 24.4 (22.0-30.0) sec Sodium 139 (137-145) mmol/L Potassium 3.7 (3.5-5.1) mmol/L Chloride 104 (98-107) mmol/L Carbon Dioxide 31 H (22-30) mmol/L Anion Gap 4 mmol/L BUN 13 (9-20) mg/dL Creatinine 0.87 (0.66-1.25) mg/dL Est GFR (CKD-EPI)AfAm >90 (>60 ml/min/1.73 sqM) Est GFR (CKD-EPI)NonAf >90 (>60 ml/min/1.73 sqM) Glucose 104 H (74-99) mg/dL Calcium 9.2 (8.4-10.2) mg/dL Magnesium 2.0 (1.6-2.3) mg/dL Total Bilirubin 1.8 H (0.2-1.3) mg/dL AST 31 (17-59) U/L ALT 37 (4-49) U/L Alkaline Phosphatase 98 (38-126) U/L Troponin I (0.000-0.034) ng/mL Total Protein 6.7 (6.3-8.2) g/dL Albumin 4.1 (3.5-5.0) g/dL TSH 1.380 (0.465-4.680) mIU/L 06/02/23 Range/Units 12:31 WBC (3.8-10.6) k/uL RBC (4.30-5.90) m/uL Hgb (13.0-17.5) gm/dL Hct (39.0-53.0) % MCV (80.0-100.0) fL MCH (25.0-35.0) pg MCHC (31.0-37.0) g/dL RDW (11.5-15.5) % Plt Count (150-450) k/uL MPV Neutrophils % % Lymphocytes % % Monocytes % % Eosinophils % % Basophils % % Neutrophils # (1.3-7.7) k/uL Lymphocytes # (1.0-4.8) k/uL Monocytes # (0-1.0) k/uL Eosinophils # (0-0.7) k/uL Basophils # (0-0.2) k/uL PT (10.0-12.5) sec INR (<1.2) APTT (22.0-30.0) sec Sodium (137-145) mmol/L Potassium (3.5-5.1) mmol/L Chloride (98-107) mmol/L Carbon Dioxide (22-30) mmol/L Anion Gap mmol/L BUN (9-20) mg/dL Creatinine (0.66-1.25) mg/dL Est GFR (CKD-EPI)AfAm (>60 ml/min/1.73 sqM) Est GFR (CKD-EPI)NonAf (>60 ml/min/1.73 sqM) Glucose (74-99) mg/dL Calcium (8.4-10.2) mg/dL Magnesium (1.6-2.3) mg/dL Total Bilirubin (0.2-1.3) mg/dL AST (17-59) U/L ALT (4-49) U/L Alkaline Phosphatase (38-126) U/L Troponin I <0.012 (0.000-0.034) ng/mL Total Protein (6.3-8.2) g/dL Albumin (3.5-5.0) g/dL TSH (0.465-4.680) mIU/L Disposition Clinical Impression: Chest pain Disposition: ADMITTED IP TO THIS HOSP Referrals: None,Stated [Primary Care Provider] - 1-2 days Time of Disposition: 13:46
[2023-06-02] MEDS: SODIUM CHLORIDE 0.9% 500 ML 500 ML IV STA (12:34)
[2023-06-02 13:06] LABS: Basophils # (A) 0.1 k/uL (0-0.2); Basophils % (A) 1 %; Eosinophils # (A) 0.2 k/uL (0-0.7); Eosinophils % (A) 3 %; HCT 44.3 % (39.0-53.0); HGB 15.4 gm/dL (13.0-17.5); Lymphocytes # (A) 1.5 k/uL (1.0-4.8); Lymphocytes % (A) 22 %; MCH 31.1 pg (25.0-35.0); MCHC 34.7 g/dL (31.0-37.0); MCV 89.6 fL (80.0-100.0); Mean Platelet Volume 8.8; Monocytes # (A) 0.4 k/uL (0-1.0); Monocytes % (A) 6 %; Neutrophils # (A) 4.5 k/uL (1.3-7.7); Neutrophils % (A) 64 %; Platelet Count 209 k/uL (150-450); RBC 4.95 m/uL (4.30-5.90); RDW 12.4 % (11.5-15.5)
[2023-06-02 13:14] LABS: ALT 37 U/L (4-49); AST 31 U/L (17-59); African American GFR (CKD) >90 (>60 ml/min/1.73 sqM); Albumin 4.1 g/dL (3.5-5.0); Alkaline Phosphatase 98 U/L (38-126); Anion Gap 4 mmol/L; Blood Urea Nitrogen 13 mg/dL (9-20); Calcium 9.2 mg/dL (8.4-10.2); Carbon Dioxide 31 mmol/L (22-30); Chloride 104 mmol/L (98-107); Glucose 104 mg/dL (74-99); Non-African American GFR(CKD) >90 (>60 ml/min/1.73 sqM); Partial Thromboplastin Time 24.4 sec (22.0-30.0); Potassium 3.7 mmol/L (3.5-5.1); Prothrombin Time 10.9 sec (10.0-12.5); Sodium 139 mmol/L (137-145); Total Bilirubin 1.8 mg/dL (0.2-1.3); Total Protein 6.7 g/dL (6.3-8.2)
--- NOTE | 2023-06-02 13:18 | XR ---
EXAMINATION TYPE: XR chest 2V DATE OF EXAM: 06/02/2023 12:41 PM CLINICAL INDICATION:Male, 67 years old with history of dysrhythmia; H COMPARISON: Chest radiographs from 03/07/2023 TECHNIQUE: XR chest 2V Frontal and lateral views of the chest. FINDINGS: Lungs/Pleura: There is flattening of the diaphragm with increased lucency of the lungs. No evidence o f pneumothorax, pleural effusion or focal consolidation. Pulmonary vascularity: Unremarkable. Heart/mediastinum: Cardiomediastinal silhouette is unremarkable. Musculoskeletal: No acute osseous pathology. IMPRESSION: 1. No acute cardiopulmonary disease process. 2. COPD changes.
[2023-06-02] MEDS ORDERED: NITROGLYCERIN SL TABS 0.4 MG TAB SUBLINGUAL PRN (13:46)
[2023-06-02] MEDS: ASPIRIN 81 MG PO STA (14:09)
[2023-06-02] MEDS: NITROGLYCERIN OINT 1 INCH/GM PACKET TOPICAL SCH (17:46)
[2023-06-02 17:54] VITALS: TEMP 98
[2023-06-02] MEDS: CLOPIDOGREL 75 MG TAB PO SCH (21:29)
[2023-06-02] MEDS: ATORVASTATIN 80 MG TAB PO SCH (21:29)
[2023-06-02] MEDS: HEPARIN SODIUM,PORCINE 5,000 UNIT/ML 1 ML VIAL SQ SCH (23:19)
--- NOTE | 2023-06-02 23:49 | P.HPIM ---
History of Present Illness H&P Date: 06/02/23 Chief Complaint: Chest pain Patient is a 67-year-old male with a past medical history of coronary artery disease status post stent placement x 2, history [place] presents to ER with complaints of chest pain/pressure on and off for the past few weeks. Patient had 30-day event monitor and is also scheduled for stress test on . Today patient started having left-sided chest pain along with left hand tingling and felt like jumping/slipping heartbeat. Patient presented to ER for further evaluation. Otherwise denies any shortness of breath. No fever no chills. No cough or sputum production. No leg swelling. No nausea vomiting abdominal pain or diarrhea. Chest x-ray showed no acute cardiopulmonary process. COPD changes. EKG showed sinus rhythm with frequent ventricular premature complexes in a bigeminal pattern. Laboratory show WBC 7.0 hemoglobin 15.4 and platelets 209 Sodium 139 potassium 3.7 chloride 104 bicarb is 31 BUN 13 and creatinine 0.87 blood sugar 104 and total bili 1.8 AST 31 ALT 37 alk phos 98 and troponin x 3- negative, TSH 1.38 Review of Systems Constitutional: Patient denies any fever or chills . No generalized weakness or weight loss. Abdomen: Patient denied nausea vomiting and diarrhea and abdominal pain. Cardiovascular: Patient did complain of chest pressure/pain and no short of breath. Occasional palpitations. Respiratory: patient denied any cough is from production. No shortness of breath Neurologic: Patient denied any numbness or tingling headache. Musculoskeletal: Patient denies any complaints of joint swelling or deformity. Skin: Negative Psychiatric: Negative Endocrine: No heat or cold intolerance. No recent weight gain. Genitourinary: No dysuria or hematuria. All other 14 point ROS negative except the above Past Medical History Past Medical History: Coronary Artery Disease (CAD), Chest Pain / Angina Additional Past Medical History / Comment(s): previously charted that pt had mi- Pt stated he was never told he had an mi Last Myocardial Infarction Date:: 03/2013 History of Any Multi-Drug Resistant Organisms: None Reported Past Surgical History: Heart Catheterization, Heart Catheterization With Stent Additional Past Surgical History / Comment(s): several heart caths and pt stated he has 2 stents Past Anesthesia/Blood Transfusion Reactions: No Reported Reaction Additional Past Anesthesia/Blood Transfusion Reaction / Comment(s): "has never had a blood transfusion" Date of Last Stent Placement:: 03/2013 Past Psychological History: No Psychological Hx Reported Smoking Status: Never smoker Past Alcohol Use History: Occasional Past Drug Use History: None Reported - Past Family History Mother Family Medical History: Coronary Artery Disease (CAD), Myocardial Infarction ([place]) Additional Family Medical History / Comment(s): Mother in her mid 60's from multiple medical problems. Father Family Medical History: Coronary Artery Disease (CAD) Additional Family Medical History / Comment(s): Father is 89 yrs old. Medications and Allergies Home Medications Medication Instructions Recorded Confirmed Type Clopidogrel Bisulfate [Clopidogrel] 75 mg PO HS 03/15/16 06/02/23 History Vitamin B Complex 1 cap PO DAILY 01/28/21 06/02/23 History Atorvastatin [Lipitor] 80 mg PO HS #90 tab 01/30/21 06/02/23 Rx Metoprolol Succinate (ER) [Toprol 12.5 mg PO DAILY 03/07/23 06/02/23 History Xl] Allergies Allergy/AdvReac Type Severity Reaction Status Date / Time prasugrel [From Effient] AdvReac "DID NOT Verified 06/02/23 14:13 FEEL WELL" Physical Exam Vitals: Vital Signs Temp Pulse Resp BP Pulse Ox 06/02/23 20:06 63 16 104/70 97 06/02/23 19:32 60 20 129/78 94 L 06/02/23 17:44 98.0 F 60 18 129/83 97 06/02/23 16:05 50 L 18 131/92 99 06/02/23 14:00 49 L 20 141/84 98 06/02/23 13:11 54 L 20 160/79 97 06/02/23 12:23 56 L 18 151/84 100 06/02/23 12:08 98.2 F 36 L 16 161/108 99 Intake and Output 06/02/23 06/02/23 06/02/23 06:59 14:59 22:59 Other: Weight 72.575 kg PHYSICAL EXAMINATION: Patient is lying in the bed comfortably, no acute distress, awake alert and oriented.. HEENT: Normocephalic. Neck is supple. Pupils reactive. Nostrils clear. Oral cavity is moist. Neck reveals no JVD, carotid bruits, or thyromegaly. CHEST EXAMINATION: Trachea is central. Symmetrical expansion. Lung reyes clear to auscultation and percussion. CARDIAC: Normal S1, S2 with no gallops. No murmurs ABDOMEN: Soft. Bowel sounds normal. No organomegaly. No abdominal bruits. Extremities: reveal no edema. No clubbing or cyanosis Neurologically awake, alert, oriented x3 with well-coordinated movements. No focal deficits noted Skin: No rash or skin lesions. Psychiatric: Coperative. Nonsuicidal Musculoskeletal: No joint swelling or deformity. Normal range of motion. Results CBC & Chem 7: 06/02/23 12:31 06/02/23 12:31 Labs: Abnormal Lab Results - Last 24 Hours (Table) 06/02/23 Range/Units 12:31 Carbon Dioxide 31 H (22-30) mmol/L Glucose 104 H (74-99) mg/dL Total Bilirubin 1.8 H (0.2-1.3) mg/dL Thrombosis Risk Factor Assmnt - DVT/VTE Prophylaxis DVT/VTE Prophylaxis: Pharmacologic Prophylaxis ordered Assessment and Plan Assessment: Atypical chest pain. Rule out ACS Abnormal EKG with premature ventricular complexes in a bigeminal pattern Coronary disease history of stent placement x 2 History of [place] GI and DVT prophylaxis Plan: Patient was given IV fluid bolus in the ER. Continue with daily monitoring. Troponin x 3 negative. Continue with aspirin statins and Plavix and is also on metoprolol 12.5 mg daily at home. Cardiology was consulted for further evaluation. Patient is scheduled for stress test next . Follow-up closely.
[2023-06-03] MEDS: METOPROLOL SUCCINATE (ER) 25 MG TAB.ER.24H PO SCH (08:08)
[2023-06-03] MEDS: ASPIRIN 325 MG TAB PO SCH (08:08)
[2023-06-03 08:09] VITALS: RESP 18
[2023-06-03] MEDS ORDERED: CAFFEINE CITRATE 60 MG/3 ML VIAL IV PRN (08:50)
[2023-06-03] MEDS ORDERED: REGADENOSON 0.4 MG/5 ML SYRINGE IV PRN (08:50)
[2023-06-03] MEDS ORDERED: AMINOPHYLLINE 500 MG/20 ML VIAL IV PRN (08:50)
--- NOTE | 2023-06-03 10:03 | P.CRDCN ---
History of Present Illness History of present illness: HISTORY OF PRESENT ILLNESS: This is a 67-year-old male with a past medical history significant for coronary artery disease with previous stenting, hypertension, hyperlipidemia. Patient fo llows in the office with Dr. Nolan. We have been asked to see the patient in consultation for chest pain. Patient examined at the bedside in the emergency room. Patient reports he has been having palpitations at home. He states he feels like his heart is flip-flopping. The patient did have a recent 30-day event monitor performed on an outpatient basis. Results are currently not available. The patient is having frequent PVCs on bedside telemetry. He also reports having some chest pain on the left side of his chest and into his armpit. He states this pain is different from his previous stenting. He denies any shortness of breath. Vital signs are stable. DIAGNOSTICS: - EKG reveals sinus mechanism with no signs of acute ischemia. Repeat EKG reveals sinus mechanism with frequent PVCs - Chest xray COPD changes. Negative for acute process.. - Laboratory data: WBC 7.0. Hemoglobin 15.4. Platelet count 209. Sodium 139. Potassium 3.7. BUN 13. Creatinine 0.87. Magnesium 2.0. Troponin negative x 3. TSH 1.380. - Current home cardiac medications include Lipitor 80 mg at night, Plavix 75 mg daily, metoprolol succinate 12.5 mg daily. - Most recent echocardiogram obtained in January 2021 revealing ejection fraction 55 to 60%, mild MR, mild TR - Cardiac catheterization history: January 2021 revealing intermediate two- vessel coronary artery disease involving the proximal RCA and left circumflex. Patent stent in the ostial as well as proximal left LAD. Normal LVEDP. REVIEW OF SYSTEMS: At the time of my exam: CONSTITUTIONAL: Denies fever or chills. HEENT: Denies blurred vision, vision changes, or eye pain. Denies hemoptysis CARDIOVASCULAR: Denies chest pain. Denies orthopnea. Denies PND. Denies palpitations RESPIRATORY: Denies shortness of breath. GASTROINTESTINAL: Denies abdominal pain. Denies nausea or vomiting. HEMATOLOGIC: Denies bleeding disorders. GENITOURINARY: Denies any blood in urine. SKIN: Denies pruitis. Denies rash. PHYSICAL EXAM: VITAL SIGNS: Reviewed. GENERAL: Well-developed in no acute distress. HEENT: Head is normocephalic. Pupils are equal, round. Sclerae anicteric. Mucous membranes of the mouth are moist. Neck supple. No JVD or thyromegaly LUNGS: Respirations even and unlabored. Lungs essentially clear to auscultation bilaterally. HEART: Regular rate and rhythm. S1 and S2 heard. ABDOMEN: Soft. Nondistended. Nontender. EXTREMITIES: Normal range of motion. No clubbing or cyanosis. Peripheral pulses intact. No lower extremity edema NEUROLOGIC: Awake and alert. Oriented x 3. ASSESSMENT: Chest pain, troponin negative x 3 Frequent PVCs Coronary artery disease with previous stenting of the LAD Hyperlipidemia PLAN: An acute coronary event has been ruled out Obtain 2D echo to assess cardiac structure and function Resume home cardiac medications Patient prefers to be on Plavix instead of aspirin on an outpatient basis. Dr. Nolan is aware and in agreement. Patient to undergo Lexiscan stress test today Will attempt to get 30-day event monitor results from cardiology office Further recommendations pending patient course Nurse practitioner note has been reviewed by physician. Signing provider agrees with the documented findings, assessment, and plan of care documented by RIM TURNING MACHINE OPERATOR as a scribe. Past Medical History Past Medical History: Coronary Artery Disease (CAD), Chest Pain / Angina Additional Past Medical History / Comment(s): previously charted that pt had mi- Pt stated he was never told he had an mi Last Myocardial Infarction Date:: 03/2013 History of Any Multi-Drug Resistant Organisms: None Reported Past Surgical History: Heart Catheterization, Heart Catheterization With Stent Additional Past Surgical History / Comment(s): several heart caths and pt stated he has 2 stents Past Anesthesia/Blood Transfusion Reactions: No Reported Reaction Additional Past Anesthesia/Blood Transfusion Reaction / Comment(s): "has never had a blood transfusion" Date of Last Stent Placement:: 03/2013 Past Psychological History: No Psychological Hx Reported Smoking Status: Never smoker Past Alcohol Use History: Occasional Past Drug Use History: None Reported - Past Family History Mother Family Medical History: Coronary Artery Disease (CAD), Myocardial Infarction ([place]) Additional Family Medical History / Comment(s): Mother in her mid 60's from multiple medical problems. Father Family Medical History: Coronary Artery Disease (CAD) Additional Family Medical History / Comment(s): Father is 89 yrs old. Medications and Allergies Home Medications Medication Instructions Recorded Confirmed Type Clopidogrel Bisulfate [Clopidogrel] 75 mg PO HS 12/23/16 03/11/24 History Vitamin B Complex 1 cap PO DAILY 01/28/21 06/02/23 History Atorvastatin [Lipitor] 80 mg PO HS #90 tab 01/30/21 06/02/23 Rx Metoprolol Succinate (ER) [Toprol 12.5 mg PO DAILY 03/07/23 06/02/23 History Xl] Allergies Allergy/AdvReac Type Severity Reaction Status Date / Time prasugrel [From Effient] AdvReac "DID NOT Verified 06/02/23 14:13 FEEL WELL" Physical Exam Vitals: Vital Signs Temp Pulse Resp BP Pulse Ox 06/03/23 08:11 71 18 115/74 99 06/03/23 07:36 77 18 120/86 99 06/03/23 06:00 60 21 102/73 96 06/03/23 05:00 61 16 93/64 95 06/03/23 04:00 56 L 18 91/49 95 06/03/23 03:00 54 L 16 108/58 96 06/03/23 02:30 56 L 12 108/58 95 06/03/23 00:00 61 21 117/61 96 06/02/23 23:00 52 L 21 104/73 97 06/02/23 22:45 56 L 18 104/73 95 06/02/23 20:06 63 16 104/70 97 06/02/23 19:32 60 20 129/78 94 L 06/02/23 17:44 98.0 F 60 18 129/83 97 06/02/23 16:05 50 L 18 131/92 99 06/02/23 14:00 49 L 20 141/84 98 06/02/23 13:11 54 L 20 160/79 97 06/02/23 12:23 56 L 18 151/84 100 06/02/23 12:08 98.2 F 36 L 16 161/108 99 Results 06/02/23 12:31 06/02/23 12:31 Cardiac Enzymes 06/02/23 06/02/23 06/02/23 Range/Units 12:31 12:31 16:09 AST 31 (17-59) U/L Troponin I <0.012 <0.012 (0.000-0.034) ng/mL 06/02/23 Range/Units 18:48 AST (17-59) U/L Troponin I <0.012 (0.000-0.034) ng/mL Coagulation 06/02/23 Range/Units 12:31 PT 10.9 (10.0-12.5) sec APTT 24.4 (22.0-30.0) sec CBC 06/02/23 Range/Units 12:31 WBC 7.0 (3.8-10.6) k/uL RBC 4.95 (4.30-5.90) m/uL Hgb 15.4 (13.0-17.5) gm/dL Hct 44.3 (39.0-53.0) % Plt Count 209 (150-450) k/uL Comprehensive Metabolic Panel 06/02/23 Range/Units 12:31 Sodium 139 (137-145) mmol/L Potassium 3.7 (3.5-5.1) mmol/L Chloride 104 (98-107) mmol/L Carbon Dioxide 31 H (22-30) mmol/L BUN 13 (9-20) mg/dL Creatinine 0.87 (0.66-1.25) mg/dL Glucose 104 H (74-99) mg/dL Calcium 9.2 (8.4-10.2) mg/dL AST 31 (17-59) U/L ALT 37 (4-49) U/L Alkaline Phosphatase 98 (38-126) U/L Total Protein 6.7 (6.3-8.2) g/dL Albumin 4.1 (3.5-5.0) g/dL Current Medications Generic Name Dose Route Start Last Admin Trade Name Freq PRN Reason Stop Dose Admin Aspirin 325 mg 06/03/23 09:00 06/03/23 08:08 Aspirin 325 Mg Tab PO 325 mg DAILY YOHANA Administration Atorvastatin Calcium 80 mg 06/02/23 21:30 06/02/23 21:29 Atorvastatin 80 Mg Tab PO 80 mg HS YOHANA Administration Clopidogrel Bisulfate 75 mg 06/02/23 21:30 06/02/23 21:29 Clopidogrel 75 Mg Tab PO 75 mg HS YOHANA Administration Heparin Sodium (Porcine) 5,000 unit 06/03/23 00:00 06/03/23 08:09 Heparin Sodium,Porcine 5,000 Unit/Ml 1 Ml Vial SQ 5,000 unit Q8HR YOHANA Administration Metoprolol Succinate 12.5 mg 06/03/23 09:00 06/03/23 08:08 Metoprolol Succinate (Er) 25 Mg Tab.Er.24h PO 12.5 mg DAILY YOHANA Administration Nitroglycerin 0.4 mg 06/02/23 13:46 Nitroglycerin Sl Tabs 0.4 Mg Tab SUBLINGUAL Q5M PRN Chest Pain Nitroglycerin 1 inch 06/02/23 18:00 06/03/23 05:04 Nitroglycerin Oint 1 Inch/Gm Packet TOPICAL Not Given Q6HR [facility] 06/02/23 12:31 06/02/23 12:31
[2023-06-03 11:13] LABS: Basophils # (A) 0.04 X 10*3/uL (0.00-0.10); Basophils % (A) 0.5 %; Eosinophils # (A) 0.32 X 10*3/uL (0.04-0.35); Eosinophils % (A) 3.9 %; HCT 40.5 % (39.6-50.0); HGB 13.8 g/dL (13.0-17.0); Lymphocytes # (A) 1.56 X 10*3/uL (0.90-5.00); Lymphocytes % (A) 18.9 %; MCHC 34.1 g/dL (32.0-37.0); Mean Platelet Volume 11.5 FL (9.5-12.2); Monocytes # (A) 0.81 X 10*3/uL (0.20-1.00); Monocytes % (A) 9.8 %; NRBC Per 100 WBC 0 X 10*3/uL (0.00-0.01); Neutrophils # (A) 5.53 X 10*3/uL (1.80-7.70); Neutrophils % (A) 66.8 %; Platelet Count 207 X 10*3/uL (140-440); RDW 12.6 % (11.5-14.5); WBC 8.27 X 10*3/uL (4.50-10.00)
[2023-06-03 11:24] LABS: ALT 29 U/L (10-49); AST 22 U/L (14-35); Albumin 3.9 g/dL (3.8-4.9); Albumin/Globulin Ratio 2.05 Ratio (1.60-3.17); Alkaline Phosphatase 93 U/L (41-126); BUN/Creat Ratio 16.11 Ratio (12.00-20.00); Blood Urea Nitrogen 14.5 mg/dL (9.0-27.0); Calcium 9.3 mg/dL (8.7-10.3); Carbon Dioxide 26.1 mmol/L (21.6-31.8); Chloride 104 mmol/L (96-109); Chol/HDL Ratio 2.34 Ratio; Globulin 1.9 g/dL (1.6-3.3); Glucose 96 mg/dL (70-110); LDL Cholesterol,Calculated 47.4 mg/dL (0.0-131.0); Sodium 140 mmol/L (135-145); Total Bilirubin 1.7 mg/dL (0.3-1.2); Total Protein 5.8 g/dL (6.2-8.2); VLDL Calculation 12.18 mg/dL (5.00-40.00)
--- NOTE | 2023-06-03 13:16 | CA ---
Lexiscan Nuclear Stress Test Report Name: Nilton Gonzalez Exam Date: 06/03/2023 11:40 Exam Location: [place] Stress Ht (in): 70 Wt (lb): 160 BSA: 1.90 Ordering Phys: Elizabeth Rucker Referring Phys: [place] Technologist: Jana Cochran RDCS Age: 67 Gender: M : 1955 Procedure CPT: Indications: Reflex order-Stress test ICD-10 Codes: Patient History: CHEST PAIN, PRIOR CATH WITH STENTING X 2, FAMILY HX OF HEART DISEASE Medications: Meds past 24 hrs: Pretest Chest Pain: STRESS TEST Lexiscan Protocol Exercise Duration (min:sec): 02:[address] Depressions (mm): Angina Score: Markham Score: Resting HR (bpm): 62 Peak HR (bpm): 93 Resting BP (mmHg): 133 / 66 Peak BP (mmHg): 143 / 65 MPHR: 155 Target HR: 132 % MPHR: 60 METS: 1.0 Total Dose: Peak Dose: Atropine: Double Product: 41140 BP Response: Stress Termination: INFUSION COMPLETE Stress Symptoms: HEADACHE Stress Summary: ECG ANALYSIS Resting ECG: Stress ECG: CONCLUSIONS Nondiagnostic stress testing Dr. Arnie Nolan MD (Electronically Signed) Final Date: 03 June 2023 13:15
[2023-06-03 13:33] VITALS: BP 133/94; PULSE 61
--- NOTE | 2023-06-03 13:53 | NM ---
EXAMINATION TYPE: NM stress lexiscan cardiolite DATE OF EXAM: 06/03/2023 COMPARISON: NONE CLINICAL INDICATION: Male, 67 years old with history of CP; TECHNIQUE: After the intravenous administration of 10.36 mCi Tc 99m Sestamibi - Cardiolite resting S PECT images acquired 75 minutes post injection. The patient received 0.4mg Lexiscan, 25.7 mCi Tc 99m Sestamibi - Stress images obtained [address] injection FINDINGS: Review of stress and rest SPECT images demonstrates no distinct perfusion abnormality. Gated analysi s shows normal wall motion with an estimated left ventricular ejection fraction of 66 %. TID is uppe r limits of normal at 1.14. IMPRESSION: No scintigraphic evidence for reversible ischemia.
--- NOTE | 2023-06-04 09:06 | CA ---
Transthoracic Echo Report Name: Nilton Gonzalez Age: 67 Gender: M : 1955 Exam Date: 06/03/2023 12:25 Exam Location: [place] Echo Ht (in): 70 Wt (lb): 160 Ordering Physician: Elizabeth Rucker Attending/Referring Phys: [id number], Chaim Retort Kiln Burner Paul Zimmer RDCS Procedure CPT: Indications: LV function Cardiac Hx: Technical Quality: Contrast 1: Total Dose (mL): Contrast 2: Total Dose (mL): MEASUREMENTS (Male / Female) Normal Values 2D ECHO LV Diastolic Diameter PLAX 4.3 cm 4.2 - 5.9 / 3.9 - 5.3 cm LV Systolic Diameter PLAX 3.0 cm IVS Diastolic Thickness 0.9 cm 0.6 - 1.0 / 0.6 - 0.9 cm LVPW Diastolic Thickness 1.0 cm 0.6 - 1.0 / 0.6 - 0.9 cm LV Relative Wall Thickness 0.5 LVOT Diameter 2.2 cm Aortic Root Diameter 3.1 cm LA Systolic Diameter LX 4.0 cm 3.0 - 4.0 / 2.7 - 3.8 cm DOPPLER AV Peak Velocity 134.9 cm/s AV Peak Gradient 7.3 mmHg AV Mean Velocity 66.4 cm/s AV Mean Gradient 2.2 mmHg AV Velocity Time Integral 20.2 cm LVOT Peak Velocity 99.6 cm/s LVOT Peak Gradient 4.0 mmHg LVOT Velocity Time Integral 21.0 cm LVOT Stroke Volume 77.3 cm??? LVOT Stroke Volume Index 40.7 ml/m??? AV Area Cont Eq vti 3.8 cm??? AV Area Cont Eq pk 2.7 cm??? MV Area PHT 3.4 cm??? Mitral E Point Velocity 68.0 cm/s Mitral A Point Velocity 65.9 cm/s Mitral E to A Ratio 1.0 MV Deceleration Time 221.8 ms PV Peak Velocity 82.4 cm/s PV Peak Gradient 2.7 mmHg FINDINGS Left Ventricle Left ventricular ejection fraction is estimated at 55-60%. Borderline left ventricular hypertrophy. Normal left ventricular systolic function with no obvious regional wall motion abnormalities. Right Ventricle Normal right ventricular size. Unable to estimate the right ventricular systolic pressure. Right Atrium Normal right atrial size. Left Atrium Mild left atrial dilatation. Mitral Valve Trace mitral regurgitation. Aortic Valve Aortic valve not well visualized. Tricuspid Valve Trace tricuspid regurgitation. Pulmonic Valve No pulmonic regurgitation. Pericardium No pericardial effusion. Aorta Normal size aortic root. CONCLUSIONS Previous echo report recorded on 01/29/2021. Normal LV systolic function Previewed by: Dr. Arnie Nolan MD (Electronically Signed) Final Date: 04 June 2023 09:05
== END 2023-06-03 15:39 | disposition home or self-care (01) ==
LOC: EC 12:06 → 6NMEDSUR 13:46
PROVIDERS: ADMIT Hospitalist; ATTEND Hospitalist
DX: R07.89 Other chest pain (principal); R94.31 Abnormal electrocardiogram [ECG] [EKG]; I49.3 Ventricular premature depolarization; I25.10 Atherosclerotic heart disease of native coronary artery without angina pectoris; I10 Essential (primary) hypertension; E78.5 Hyperlipidemia, unspecified; I25.2 Old myocardial infarction; Z95.5 Presence of coronary angioplasty implant and graft; Z79.02 Long term (current) use of antithrombotics/antiplatelets; Z79.899 Other long term (current) drug therapy
CPT/HCPCS: 96360; 96372 ×2; 99285; 36415; 93005 ×2; 93017; 93306; 80061; 80053 ×2; 83735; 84443; 84484; 85025 ×2; 85610; 85730; 71046; 78452; G0378 ×2; A9500; J1644 ×2; J2785

== ENCOUNTER 2024-04-13 14:32 | Emergency (ER) | payer MEDICARE, OTHER ==
--- NOTE | 2024-04-13 15:48 | ED ---
General Adult HPI - General Source: patient, RN notes reviewed Mode of arrival: ambulatory Limitations: no limitations - History of Present Illness Onset/Timin -: days(s) <Joshua Banerjee - Last Filed: 04/13/24 15:46> - General Source: patient, RN notes reviewed, old records reviewed Mode of arrival: ambulatory Limitations: no limitations - History of Present Illness -: week(s) Location: pelvis, genitals Severity scale (1-10): 3 Quality: burning Consistency: constant, intermittent Improves with: none Worsens with: none Associated Symptoms: denies other symptoms Treatments Prior to Arrival: none <Ruddy Ibrahim - Last Filed: 04/14/24 07:40> - General Chief complaint: Recheck/Abnormal Lab/Rx Stated complaint: Urogenital Time Seen by Provider: 04/13/24 14:50 - History of Present Illness Initial comments: Quick note: This is a 68-year-old male presenting with left testicular/groin pain x 7 days. Patient states pain radiates to his left flank/lower back (08/31). Denies fever, chills, dysuria, polyuria, gross hematuria, urethral discharge. (Joshua Banerjee) This is a 68-year-old male to ER for testicular and groin pain, pain with urination dysuria (Ruddy Ibrahim) - Related Data Home Medications Medication Instructions Recorded Confirmed Clopidogrel Bisulfate [Clopidogrel] 75 mg PO HS 03/15/16 06/02/23 Vitamin B Complex 1 cap PO DAILY 01/28/21 06/02/23 Metoprolol Succinate (ER) [Toprol 12.5 mg PO DAILY 03/07/23 06/02/23 XL] Previous Rx's Medication Instructions Recorded Atorvastatin [Lipitor] 80 mg PO HS #90 tab 01/30/21 Nitroglycerin Sl Tabs [Nitrostat] 0.4 mg SUBLINGUAL Q5M PRN #20 tab 06/03/23 Levofloxacin [Levaquin] 750 mg PO DAILY 14 Days #14 tab 04/13/24 Allergies Allergy/AdvReac Type Severity Reaction Status Date / Time prasugrel [From Effient] AdvReac "DID NOT Verified 04/13/24 15:26 FEEL WELL" Review of Systems ROS Other: All systems not noted in ROS Statement are negative. <Joshua Banerjee - Last Filed: 04/13/24 15:46> ROS Other: All systems not noted in ROS Statement are negative. <Ruddy Ibrahim - Last Filed: 04/14/24 07:40> ROS Statement: Those systems with pertinent positive or pertinent negative responses have been documented in the HPI. Past Medical History Past Medical History: Coronary Artery Disease (CAD), Chest Pain / Angina Additional Past Medical History / Comment(s): previously charted that pt had mi- Pt stated he was never told he had an mi Last Myocardial Infarction Date:: 03/2013 History of Any Multi-Drug Resistant Organisms: None Reported Past Surgical History: Heart Catheterization, Heart Catheterization With Stent Additional Past Surgical History / Comment(s): several heart caths and pt stated he has 2 stents Past Anesthesia/Blood Transfusion Reactions: No Reported Reaction Additional Past Anesthesia/Blood Transfusion Reaction / Comment(s): "has never had a blood transfusion" Date of Last Stent Placement:: 03/2013 Past Psychological History: No Psychological Hx Reported Smoking Status: Never smoker Past Alcohol Use History: Occasional Past Drug Use History: None Reported - Past Family History Mother Family Medical History: Coronary Artery Disease (CAD), Myocardial Infarction (SC) Additional Family Medical History / Comment(s): Mother in her mid 60's from multiple medical problems. Father Family Medical History: Coronary Artery Disease (CAD) Additional Family Medical History / Comment(s): Father is 89 yrs old. <Joshua Banerjee - Last Filed: 04/13/24 15:46> General Exam Limitations: no limitations <Joshua Banerjee - Last Filed: 04/13/24 15:46> General appearance: alert, in no apparent distress Head exam: Present: atraumatic, normocephalic, normal inspection Eye exam: Present: normal appearance, PERRL, EOMI. Absent: scleral icterus, conjunctival injection, periorbital swelling ENT exam: Present: normal exam, mucous membranes moist Neck exam: Present: normal inspection. Absent: tenderness, meningismus, lymphadenopathy Respiratory exam: Present: normal lung sounds bilaterally. Absent: respiratory distress, wheezes, rales, rhonchi, stridor Cardiovascular Exam: Present: regular rate, normal rhythm, normal heart sounds. Absent: systolic murmur, diastolic murmur, rubs, gallop, clicks GI/Abdominal exam: Present: soft, normal bowel sounds. Absent: distended, tenderness, guarding, rebound, rigid Extremities exam: Present: normal inspection, full ROM, normal capillary refill. Absent: tenderness, pedal edema, joint swelling, calf tenderness Back exam: Present: normal inspection Neurological exam: Present: alert, oriented X3, CN II-XII intact Psychiatric exam: Present: normal affect, normal mood Skin exam: Present: warm, dry, intact, normal color. Absent: rash <Ruddy Ibrahim - Last Filed: 04/14/24 07:40> - General Exam Comments Initial Comments: Visual Physical Exam Vital signs reviewed General: Well-appearing, nontoxic, no acute distress. Head: Normocephalic, atraumatic Eyes: PERRLA, EOMI ENT: Airway patent Chest: Nonlabored breathing Skin: No visual rash, normal skin tone Neuro: Alert and oriented 3 Musculoskeletal: No gross abnormalities (Joshua Banerjee) Course <Ruddy Ibrahim - Yeyo Filed: 04/14/24 07:40> Vital Signs 04/13/24 04/13/24 15:22 19:06 Temperature 97.7 F 98.3 F Pulse Rate 70 62 Respiratory 18 19 Rate Blood Pressure 136/80 146/92 O2 Sat by Pulse 97 98 Oximetry - Reevaluation(s) Reevaluation #1: Medical records reviewed (Ruddy Ibrahim) Reevaluation #2: Patient symptoms improved (Ruddy Ibrahim) Reevaluation #3: Patient informed of results questions answered (Ruddy Ibrahim) Reevaluation #4: Was pt. sent in by a medical professional or institution (, PA, HEAD ANIMAL KEEPER, urgent care, hospital, or [facility]...) When possible be specific @ -no Did you speak to anyone other than the patient for history (EMS, parent, family, police, friend...)? What history was obtained from this source @ -no Did you review nursing and triage notes (agree or disagree)? Why? @ -agree Are old charts reviewed (outside hosp., previous admission, EMS record, old EKG, old radiological studies, urgent care reports/EKG's, [facility] records)? Report findings @ -yes Differential Diagnosis (chest pain, altered mental status, abdominal pain women, abdominal pain men, vaginal bleeding, weakness, fever, dyspnea, syncope, headache, dizziness, GI bleed, back pain, seizure, CVA, palpatations, mental health, musculoskeletal)? @ -prior EKG interpreted by me (3pts min.). @ -no X-rays interpreted by me (1pt min.). @ -no CT interpreted by me (1pt min.). @ -no U/S interpreted by me (1pt. min.). @ -Yes positive for orchitis What testing was considered but not performed or refused? (CT, X-rays, U/S, labs)? Why? @ -none What meds were considered but not given or refused? Why? @ -none Did you discuss the management of the patient with other professionals (professionals i.e. , PA, HEAD ANIMAL KEEPER, lab, RT, psych nurse, public health social worker, neonatal nurse practitioner, teacher, learning and development officer, case investigator)? Give summary @ -no Was smoking cessation discussed for >3mins.? @ -no Was critical care preformed (if so, how long)? @ -no Were there social determinants of health that impacted care today? How? (Homelessness, low income, unemployed, alcoholism, drug addiction, transportation, low edu. Level, literacy, decrease access to med. care, residential, rehab)? @ -none Was there de-escalation of care discussed even if they declined (Discuss DNR or withdrawal of care, Hospice)? DNR status @ -no What co-morbidities impacted this encounter? (DM, HTN, Smoking, COPD, CAD, Cancer, CVA, ARF, Chemo, Hep., AIDS, mental health diagnosis, sleep apnea, morbid obesity)? @ -none Was patient admitted / discharged? Hospital course, mention meds given and route, prescriptions, significant lab abnormalities, going to OR and other per tinent info. @ - 68 male with dysuria and abdominal pain. Orchitis on ultrasound. Patient given antibiotics and can be discharged home Discharge Undiagnosed new problem with uncertain prognosis? @ -no Drug Therapy requiring intensive monitoring for toxicity (Heparin, Nitro, Insulin, Cardizem)? @ -no Were any procedures done? @ -no Diagnosis/symptom? @ -Dysuria orchitis urethritis prostatitis Acute, or Chronic, or Acute on Chronic? @ -Acute Uncomplicated (without systemic symptoms) or Complicated (systemic symptoms)? @ -Complicated Side effects of treatment? @ -no Exacerbation, Progression, or Severe Exacerbation? @ -exacerbation Poses a threat to life or bodily function? How? (Chest pain, USA, SC, pneumonia, PE, COPD, DKA, ARF, appy, cholecystitis, CVA, Diverticulitis, Homicidal, Suicidal, threat to staff... and all critical care pts) @ -no (Ruddy Ibrahim) Reevaluation #5: Differential Abdominal Pain Men: Appendicitis, cholecystitis, diverticulosis, ischemic bowel, pancreatitis, hepatitis, UTI, gastroenteritis, AAA, incarcerated hernia, bowel obstruction, constipation, inflammatory bowel, hepatitis, peptic ulcer disease, splenic infarction, perforated viscus, testicular torsion, this is not meant to be an all-inclusive list (Ruddy Ibrahim) Medical Decision Making <Joshua Banerjee - Last Filed: 04/13/24 15:46> - Lab Data Result diagrams: 04/13/24 16:19 04/13/24 16:19 - Radiology Data Radiology results: report reviewed (Ultrasound scrotum positive for orchitis), image reviewed <Ruddy Ibrahim - Last Filed: 04/14/24 07:40> - Medical Decision Making I completed the quick note portion of this chart signed CHRISTA Fair (Joshua Banerjee) 68 male with dysuria and abdominal pain. Orchitis on ultrasound. Patient given antibiotics and can be discharged home (Ruddy Ibrahim) - Lab Data Lab Results 04/13/24 04/13/24 04/13/24 Range/Units 16:19 16:19 16:21 WBC 8.1 (3.8-10.6) k/uL RBC 5.10 (4.30-5.90) m/uL Hgb 15.4 (13.0-17.5) gm/dL Hct 45.1 (39.0-53.0) % MCV 88.6 (80.0-100.0) fL MCH 30.2 (25.0-35.0) pg MCHC 34.1 (31.0-37.0) g/dL RDW 12.6 (11.5-15.5) % Plt Count 218 (150-450) k/uL MPV 8.3 Neutrophils % 74 % Lymphocytes % 14 % Monocytes % 7 % Eosinophils % 2 % Basophils % 0 % Neutrophils # 6.0 (1.3-7.7) k/uL Lymphocytes # 1.1 (1.0-4.8) k/uL Monocytes # 0.6 (0-1.0) k/uL Eosinophils # 0.2 (0-0.7) k/uL Basophils # 0.0 (0-0.2) k/uL Sodium 138 (137-145) mmol/L Potassium 4.1 (3.5-5.1) mmol/L Chloride 99 (98-107) mmol/L Carbon Dioxide 28 (22-30) mmol/L Anion Gap 11 mmol/L BUN 16 (9-20) mg/dL Creatinine 0.79 (0.66-1.25) mg/dL Est GFR (CKD-EPI)AfAm >90 (>60 ml/min/1.73 sqM) Est GFR (CKD-EPI)NonAf >90 (>60 ml/min/1.73 sqM) Glucose 88 (74-99) mg/dL Calcium 9.8 (8.4-10.2) mg/dL Total Bilirubin 2.3 H (0.2-1.3) mg/dL AST 29 (17-59) U/L ALT 31 (4-49) U/L Alkaline Phosphatase 95 (38-126) U/L Total Protein 7.1 (6.3-8.2) g/dL Albumin 4.5 (3.5-5.0) g/dL Urine Color Colorless Urine Appearance Clear (Clear) Urine pH 6.5 (5.0-8.0) Ur Specific [place] 1.002 (1.001-1.035) Urine Protein Negative (Negative) Urine Glucose (UA) Negative (Negative) Urine Ketones Negative (Negative) Urine Blood Small H (Negative) Urine Nitrite Negative (Negative) Urine Bilirubin Negative (Negative) Urine Urobilinogen <2.0 (<2.0) mg/dL Ur Leukocyte Esterase Negative (Negative) Urine RBC <1 (0-5) /hpf Urine WBC <1 (0-5) /hpf Ur Squamous Epith Cells <1 (0-4) /hpf Disposition <Joshua Banerjee - Last Filed: 04/13/24 15:46> Is patient prescribed a controlled substance at d/c from ED?: No Time of Disposition: 18:30 <Ruddy Ibrahim - Last Filed: 04/14/24 07:40> Clinical Impression: Orchitis and epididymitis Disposition: HOME SELF-CARE Condition: Good Instructions (If sedation given, give patient instructions): Epididymo-Orchitis (ED) Prescriptions: Levofloxacin [Levaquin] 750 mg PO DAILY 14 Days #14 tab Referrals: Radha Thornton MD [Primary Care Provider] - 1-2 days eHrnesto Raymond MD [STAFF PHYSICIAN] - 1-2 days
[2024-04-13 16:39] LABS: Basophils % (A) 0 %; Eosinophils # (A) 0.2 k/uL (0-0.7); Eosinophils % (A) 2 %; HCT 45.1 % (39.0-53.0); HGB 15.4 gm/dL (13.0-17.5); Lymphocytes # (A) 1.1 k/uL (1.0-4.8); Lymphocytes % (A) 14 %; MCH 30.2 pg (25.0-35.0); MCHC 34.1 g/dL (31.0-37.0); MCV 88.6 fL (80.0-100.0); Mean Platelet Volume 8.3; Monocytes # (A) 0.6 k/uL (0-1.0); Monocytes % (A) 7 %; Neutrophils % (A) 74 %; Platelet Count 218 k/uL (150-450); RDW 12.6 % (11.5-15.5); WBC 8.1 k/uL (3.8-10.6)
[2024-04-13 16:50] LABS: Appearance,Urine Clear (Clear); Bilirubin,Urine Negative (Negative); Blood,Urine Small (Negative); Color,Urine Colorless; Glucose,Urine (UA) Negative (Negative); Ketones,Urine Negative (Negative); Leukocyte Esterase,Urine Negative (Negative); Nitrite,Urine Negative (Negative); PH, Urine 6.5 (5.0-8.0); Protein,Urine Negative (Negative); RBC,Urine <1 /hpf (0-5); Specific Gravity,Urine 1.002 (1.001-1.035); Squamous Epithelial Cell,Urine <1 /hpf (0-4); Urobilinogen,Urine <2.0 mg/dL (<2.0); WBC,Urine <1 /hpf (0-5)
[2024-04-13 17:13] LABS: ALT 31 U/L (4-49); AST 29 U/L (17-59); African American GFR (CKD) >90 (>60 ml/min/1.73 sqM); Albumin 4.5 g/dL (3.5-5.0); Alkaline Phosphatase 95 U/L (38-126); Anion Gap 11 mmol/L; Blood Urea Nitrogen 16 mg/dL (9-20); Calcium 9.8 mg/dL (8.4-10.2); Carbon Dioxide 28 mmol/L (22-30); Chloride 99 mmol/L (98-107); Glucose 88 mg/dL (74-99); Non-African American GFR(CKD) >90 (>60 ml/min/1.73 sqM); Potassium 4.1 mmol/L (3.5-5.1); Sodium 138 mmol/L (137-145); Total Bilirubin 2.3 mg/dL (0.2-1.3); Total Protein 7.1 g/dL (6.3-8.2)
--- NOTE | 2024-04-13 18:07 | US ---
EXAMINATION TYPE: US scrotum with doppler. DATE OF EXAM: 04/13/2024 COMPARISON: NONE CLINICAL INDICATION: Male, 68 years old with history of Left testicular pain; Patient states left daniel ticular pain for 1 week. States 5/10. No swelling or redness TECHNIQUE: Grayscale, color Doppler and spectral Doppler imaging of the scrotum. FINDINGS: EXAM MEASUREMENTS: TESTICLES: Right Testicle: 3.1 x 2.0 x 2.6 cm Left Testicle: 2.5 x 2.0 x 2.7 cm EPIDIDYMIS HEAD: Right Epididymis: 1.0 x 0.5 cm Left Epididymis: 1.3 x 0.7 cm ? slight increase vascularity within vs normal Doppler performed to assess for testicular vascularity; good bilateral color flow and spectral wavefo abigail are seen. There is no evidence of testicular torsion. Presence of hydroceles: bilateral Presence of varicoceles: no IMPRESSION: 1. There may be mildly increased vascularity within the left epididymis correlate for epididymitis. 2. No evidence for intratesticular mass. 3. Appropriate arterial and venous spectral waveforms to the testes. 4. Trace bilateral hydroceles. [facility], , 04/13/2024 6:05 PM
[2024-04-13 19:08] VITALS: BP 146/92; PULSE 62; RESP 19; TEMP 98.3
[2024-04-13] MEDS: KETOROLAC 15 MG/ML 1 ML VIAL IM STA (19:11)
[2024-04-13] MEDS: SODIUM CHLORIDE 0.9% 1,000 ML IV STA (19:11)
[2024-04-13] MEDS: LEVOFLOXACIN 750 MG TAB PO STA (19:14)
[2024-04-14 12:49] LABS: N. gonorrhoeae,PCR Negative (Negative)
[2024-04-14 12:55] LABS: C. trachomatis,PCR Negative (Negative)
== END 2024-04-13 19:17 | disposition home or self-care (01) ==
LOC: EC 14:32
DX: N45.3 Epididymo-orchitis (principal); Z88.8 Allergy status to other drugs, medicaments and biological substances
CPT/HCPCS: 36415; 76870; 80053; 81001; 85025; 87491; 87591; 93975; 99284

== ENCOUNTER → 2024-08-05 | Outpatient (CLI) | payer MEDICARE, OTHER ==
[2024-08-05 15:42] LABS: ALT 36 U/L (10-49); AST 26 U/L (14-35); Chol/HDL Ratio 2.12 Ratio; LDL Cholesterol,Calculated 56.2 mg/dL (0.0-131.0); VLDL Calculation 14.24 mg/dL (5.00-40.00)
== END | disposition home or self-care (01) ==
LOC: LABWHC1 08:24
PROVIDERS: ATTEND Internal Medicine Interventional Cardiology
DX: E78.2 Mixed hyperlipidemia (principal)
CPT/HCPCS: 36415; 80061; 84450; 84460

== ENCOUNTER → 2024-08-06 | Outpatient (CLI) | payer MEDICARE, OTHER ==
[2024-08-06 10:46] LABS: African American GFR (CKD) >90 (>60 ml/min/1.73 sqM); Blood Urea Nitrogen 13 mg/dL (9-20); Non-African American GFR(CKD) >90 (>60 ml/min/1.73 sqM)
--- NOTE | 2024-08-08 18:03 | CT ---
EXAMINATION TYPE: CT abdomen pelvis w con DATE OF EXAM: 08/06/2024 12:36 PM COMPARISON: Correlation ultrasound 04/13/2024 CLINICAL INDICATION: Male, 68 years old with history of R10.32 LLQ pain, testicular pain; testicular pain TECHNIQUE: CT of the abdomen and pelvis after administration of IV contrast. Coronal and sagittal ref ormats were created on a separate workstation. Contrast used:100 ml mL of Isovue 300 with IV Contrast Oral contrast used: with Oral Contrast CT DLP: 803. mGycm, Automated exposure control for dose reduction was used. FINDINGS: LOWER CHEST: Three-vessel coronary artery calcifications are marker for coronary artery disease. Hear t is normal in size. Mild emphysematous change in the lower lungs. There is some nodular subpleural a telectasis at both lung bases with a 5 mm subpleural pulmonary nodule in the lingula. ABDOMEN LIVER: Tiny calcified granuloma inferiorly near the gallbladder fossa. Portal venous system is patent . GALLBLADDER AND BILE DUCTS: Unremarkable. PANCREAS: Unremarkable. SPLEEN: Unremarkable. ADRENAL GLANDS: Unremarkable. KIDNEYS AND URETERS: A couple tiny benign cortical cysts measuring up to 7 mm on either side. Symmetr ic uptake and excretion of contrast on both sides. PELVIS BLADDER: No evidence for wall thickening or mass given limitations of exam. REPRODUCTIVE: Prostate gland borderline in size at 4.0 cm ABDOMEN & PELVIS STOMACH AND BOWEL: No evidence of bowel obstruction. Mild scattered stool. Oral contrast progressed i nto the distal colon. Short segment annular thickening rectosigmoid junction, axial image 65 and gian nal image 80 possibly due to focal peristalsis. PERITONEUM/RETROPERITONEUM: No evidence of pneumoperitoneum or free fluid. VASCULATURE: Mild atherosclerotic calcifications. MUSCULOSKELETAL: No acute osseous abnormalities LYMPH NODES: No gross evidence for lymphadenopathy. SOFT TISSUE/ABDOMINAL WALL: Unremarkable IMPRESSION: 1. Borderline size prostate gland at 4.0 cm wide. Correlate with patient's symptoms and PSA values. 2. Short segment annular thickening at the rectosigmoid junction may be due to focal peristalsis. Cor relate with direct visualization if routine screening colonoscopy is not being performed. 3. Mild emphysematous change in the lower lungs. There is a 5 mm inferior lingular pulmonary nodule w hich is nonspecific. Recommend three-month follow-up CT chest to reassess and also to survey the danny arpan of the lungs. Fleischner guidelines. [facility], , 08/08/2024 6:01 PM
== END | disposition home or self-care (01) ==
LOC: RADCTMAIN 09:44
PROVIDERS: ATTEND Family Medicine
DX: R91.1 Solitary pulmonary nodule (principal); J43.9 Emphysema, unspecified; R19.5 Other fecal abnormalities; N50.812 Left testicular pain
CPT/HCPCS: 82565; 84520; 74177; 36415; Q9967